=== PATIENT | male | born 1940 | race Caucasian/White ===

== ENCOUNTER 2019-08-17 22:06 | Inpatient (IN) | payer BC, MEDICARE ==
[2019-08-17] MEDS ORDERED: ASPIRIN 81 MG PO STA (23:06)
--- NOTE | 2019-08-17 23:21 | XR ---
EXAMINATION TYPE: XR chest 2V DATE OF EXAM: 08/17/2019 COMPARISON: NONE HISTORY: Chest pain TECHNIQUE: Frontal and lateral views of the chest are obtained. FINDINGS: There is no heart failure nor confluent pneumonic infiltrate. Costophrenic angles are nicholas r. There are sternal wires. Bony thorax is intact. IMPRESSION: No active cardiopulmonary disease. No change. Normal heart.
[2019-08-17 23:23] LABS: Anisocytosis Slight; Basophils # (A) 0.1 k/uL (0-0.2); Basophils % (A) 1 %; Eosinophils # (A) 0.3 k/uL (0-0.7); Eosinophils % (A) 4 %; HCT 28.4 % (39.0-53.0); HGB 8.8 gm/dL (13.0-17.5); Lymphocytes # (A) 1.6 k/uL (1.0-4.8); Lymphocytes % (A) 21 %; MCH 27.2 pg (25.0-35.0); MCHC 30.9 g/dL (31.0-37.0); Mean Platelet Volume 8.2; Monocytes # (A) 0.4 k/uL (0-1.0); Monocytes % (A) 5 %; Neutrophils # (A) 5.2 k/uL (1.3-7.7); Neutrophils % (A) 67 %; Platelet Count 212 k/uL (150-450); RBC 3.23 m/uL (4.30-5.90); RDW 16.2 % (11.5-15.5); WBC 7.8 k/uL (3.8-10.6)
[2019-08-17 23:31] LABS: Albumin 3.8 g/dL (3.5-5.0); Calcium 9.4 mg/dL (8.4-10.2); Magnesium 1.9 mg/dL (1.6-2.3); Potassium 5.1 mmol/L (3.5-5.1); Total Bilirubin 0.1 mg/dL (0.2-1.3); Total Protein 6.6 g/dL (6.3-8.2)
[2019-08-17 23:36] LABS: INR 0.9 (<1.2); Partial Thromboplastin Time 25.6 sec (22.0-30.0); Prothrombin Time 9.6 sec (9.0-12.0)
[2019-08-17 23:44] LABS: D-Dimer 0.8 mg/L FEU (<0.60)
--- NOTE | 2019-08-17 23:49 | ED ---
General Adult HPI - General Chief complaint: Chest Pain Stated complaint: Chest pain Time Seen by Provider: 08/17/19 22:24 Source: patient Mode of arrival: wheelchair Limitations: no limitations - History of Present Illness Initial comments: Dictation was produced using [employer] dictation software. please excuse any grammatical, word or spelling errors. Chief Complaint: 78-year-old male past medical history of asthma, coronary artery disease, status post CABG, diabetes, dyslipidemia and hypertension presents with chest pain. History of Present Illness: Patient is 78-year-old male he is has multiple comorbidities. He presents today with exertional chest pain. Patient is a history of CABG. This Was performed at outside facility. Patient lives in [place] however has a cottage in the area. Patient was having chest pain after moving groceries. Patient also has left knee pain. He states that pain is been ongoing however is worse the back of the knee. Patient states the pain was sharp without any radiation. Patient states that he does not have any pain at the moment. He did complain of some mild diaphoresis during this episode. No radiation of symptoms to the jaw or upper extremities. Patient does not feel short of breath at rest. The ROS documented in this emergency department record has been reviewed and confirmed by me. Those systems with pertinent positive or negative responses have been documented in the HPI. All other systems are other negative and/or noncontributory. PHYSICAL EXAM: General Impression: Alert and oriented x3, not in acute distress HEENT: Normocephalic atraumatic, extra-ocular movements intact, pupils equal and reactive to light bilaterally, mucous membranes moist. Cardiovascular: Heart regular rate and rhythm, S1&S2 audible, no murmurs, rubs or gallops Chest: Mild wheezing Abdomen: Bowel sounds present, abdomen soft, non-tender, non-distended, no organ omegaly Musculoskeletal: Pulses present and equal in all extremities, no peripheral edema Motor: no focal deficits noted Neurological: CN II-XII grossly intact, no focal motor or sensory deficits noted Skin: Intact with no visualized rashes Psych: Normal affect and mood ED course: 80-year-old male with multiple comorbidities presents with chest pain shortness of breath. As upon arrival shows heart rate of 103, respiratory signs within acceptable limits. Lipitor evaluation obtained showing hemoglobin of 8.8. This is slightly decreased compared to hemoglobin from October 2016. Patient also does have mild elevated RDW. He has no complaints of GI bleed or diarrhea. Patient's creatinine is elevated at 3.70. He has history of right nephrectomy due to kidney cancer. Glucose 352. D-dimer is elevated 0.8, troponin 0.018, prematurity peptide is 2000. Patient has acute kidney injury and would not tolerate contrast given that he has only one kidney. Patient started heparin VQ scan is ordered for evaluation of possible pulmonary embolus. Patient given fluids for concern of acute kidney injury. She is clinical presentation concerning for atypical chest pain with typical features, acute kidney injury with history of nephrectomy and possible pulmonary embolus given chest pain and shortness of breath. Patient be admitted to Dr. Sanchez's group. Patient ordered for intravenous fluids. EKG interpretation: Ventricular rate 78, normal sinus rhythm,. Interval 166, QS 98, QTC 424. No NV prolongation, no QTC prolongation, no ST or T-wave changes noted. There are some changes compared to EKG from July 2016, no findings to suggest ischemia or ST segment elevation MN. - Related Data Home Medications Medication Instructions Recorded Confirmed Amitriptyline HCl [Elavil] 20 mg PO DAILY 08/14/16 08/17/19 Aspirin EC [Ecotrin Low Dose] 81 mg PO DAILY 08/14/16 08/17/19 Atorvastatin [Lipitor] 40 mg PO HS 08/14/16 08/17/19 Calcitriol [Rocaltrol] 0.25 mcg PO DAILY 08/14/16 08/17/19 Calcium Carbonate [Calcium] 600 mg PO DAILY 08/14/16 08/17/19 Insulin Aspart [NovoLOG Flexpen] 6 units SQ -KT 08/14/16 08/17/19 Insulin Detemir [Levemir Flextouch] 40 units SQ HS 08/14/16 08/17/19 Magnesium Oxide [Mag-Ox] 500 mg PO DAILY 08/14/16 08/17/19 Omeprazole [PriLOSEC] 20 mg PO AC-BRKFST 08/14/16 08/17/19 Primidone [Mysoline] 50 mg PO QID 08/14/16 08/17/19 Albuterol Sulfate [Proair Hfa] 1 - 2 puff INHALATION RT-QID PRN 08/17/19 08/17/19 Biotin 5 mg PO DAILY 08/17/19 08/17/19 Clopidogrel [Plavix] 75 mg PO HS 08/17/19 08/17/19 Donepezil HCl [Aricept] 5 mg PO HS 08/17/19 08/17/19 Levothyroxine Sodium [Synthroid] 75 mcg PO DAILY 08/17/19 08/17/19 Wheat Dextrin [Benefiber] 1 packet PO DAILY 08/17/19 08/17/19 amLODIPine [Norvasc] 5 mg PO BID 08/17/19 08/17/19 sitaGLIPtin [Januvia] 100 mg PO DAILY 08/17/19 08/17/19 Allergies Allergy/AdvReac Type Severity Reaction Status Date / Time Penicillins Allergy Unknown Verified 08/17/19 23:06 Xavi Cheese AdvReac Nausea & Uncoded 08/17/19 23:06 Vomiting & Diarrhea Review of Systems ROS Statement: Those systems with pertinent positive or pertinent negative responses have been documented in the HPI. ROS Other: All systems not noted in ROS Statement are negative. Past Medical History Past Medical History: Asthma, Cancer, Diabetes Mellitus, Hyperlipidemia, Hypertension, Osteoarthritis (OA) History of Any Multi-Drug Resistant Organisms: None Reported Past Surgical History: Coronary Bypass/CABG, Heart Catheterization With Stent, Hernia Repair, Orthopedic Surgery Additional Past Surgical History / Comment(s): kidney removed from right side Past Psychological History: No Psychological Hx Reported Smoking Status: Former smoker Past Alcohol Use History: Occasional Past Drug Use History: None Reported General Exam Limitations: no limitations Course Vital Signs 08/17/19 08/17/19 22:15 23:54 Temperature 98.5 F Pulse Rate 103 H 71 Respiratory 18 18 Rate Blood Pressure 138/98 156/76 O2 Sat by Pulse 95 100 Oximetry Medical Decision Making - Lab Data Result diagrams: 08/17/19 23:10 08/17/19 23:10 Lab Results 08/17/19 08/17/19 08/17/19 Range/Units 23:10 23:10 23:10 WBC 7.8 (3.8-10.6) k/uL RBC 3.23 L (4.30-5.90) m/uL Hgb 8.8 L (13.0-17.5) gm/dL Hct 28.4 L (39.0-53.0) % MCV 88.0 (80.0-100.0) fL MCH 27.2 (25.0-35.0) pg MCHC 30.9 L (31.0-37.0) g/dL RDW 16.2 H (11.5-15.5) % Plt Count 212 (150-450) k/uL Neutrophils % 67 % Lymphocytes % 21 % Monocytes % 5 % Eosinophils % 4 % Basophils % 1 % Neutrophils # 5.2 (1.3-7.7) k/uL Lymphocytes # 1.6 (1.0-4.8) k/uL Monocytes # 0.4 (0-1.0) k/uL Eosinophils # 0.3 (0-0.7) k/uL Basophils # 0.1 (0-0.2) k/uL Anisocytosis Slight PT (9.0-12.0) sec INR (<1.2) APTT (22.0-30.0) sec D-Dimer (<0.60) mg/L FEU Sodium 140 (137-145) mmol/L Potassium 5.1 (3.5-5.1) mmol/L Chloride 104 (98-107) mmol/L Carbon Dioxide 27 (22-30) mmol/L Anion Gap 9 mmol/L BUN 54 H (9-20) mg/dL Creatinine 3.70 H (0.66-1.25) mg/dL Est GFR (CKD-EPI)AfAm 17 (>60 ml/min/1.73 sqM) Est GFR (CKD-EPI)NonAf 15 (>60 ml/min/1.73 sqM) Glucose 352 H (74-99) mg/dL Calcium 9.4 (8.4-10.2) mg/dL Magnesium 1.9 (1.6-2.3) mg/dL Total Bilirubin 0.1 L (0.2-1.3) mg/dL AST 19 (17-59) U/L ALT 18 L (21-72) U/L Alkaline Phosphatase 132 H (38-126) U/L Troponin I (0.000-0.034) ng/mL NT-Pro-B Natriuret Pep 2480 pg/mL Total Protein 6.6 (6.3-8.2) g/dL Albumin 3.8 (3.5-5.0) g/dL 09/19/19 09/19/19 Range/Units 23:10 23:10 WBC (3.8-10.6) k/uL RBC (4.30-5.90) m/uL Hgb (13.0-17.5) gm/dL Hct (39.0-53.0) % MCV (80.0-100.0) fL MCH (25.0-35.0) pg MCHC (31.0-37.0) g/dL RDW (11.5-15.5) % Plt Count (150-450) k/uL Neutrophils % % Lymphocytes % % Monocytes % % Eosinophils % % Basophils % % Neutrophils # (1.3-7.7) k/uL Lymphocytes # (1.0-4.8) k/uL Monocytes # (0-1.0) k/uL Eosinophils # (0-0.7) k/uL Basophils # (0-0.2) k/uL Anisocytosis PT 9.6 (9.0-12.0) sec INR 0.9 (<1.2) APTT 25.6 (22.0-30.0) sec D-Dimer 0.80 H (<0.60) mg/L FEU Sodium (137-145) mmol/L Potassium (3.5-5.1) mmol/L Chloride (98-107) mmol/L Carbon Dioxide (22-30) mmol/L Anion Gap mmol/L BUN (9-20) mg/dL Creatinine (0.66-1.25) mg/dL Est GFR (CKD-EPI)AfAm (>60 ml/min/1.73 sqM) Est GFR (CKD-EPI)NonAf (>60 ml/min/1.73 sqM) Glucose (74-99) mg/dL Calcium (8.4-10.2) mg/dL Magnesium (1.6-2.3) mg/dL Total Bilirubin (0.2-1.3) mg/dL AST (17-59) U/L ALT (21-72) U/L Alkaline Phosphatase (38-126) U/L Troponin I 0.018 (0.000-0.034) ng/mL NT-Pro-B Natriuret Pep pg/mL Total Protein (6.3-8.2) g/dL Albumin (3.5-5.0) g/dL Disposition Clinical Impression: DAMIR (acute kidney injury), Chest pain, Dyspnea Disposition: ADMITTED IP TO THIS HOSP Condition: Fair Referrals: None,Stated [Primary Care Provider] - 1-2 days Decision Time: 00:33
[2019-08-18] MEDS ORDERED: NITROGLYCERIN SL TABS 0.4 MG TAB SUBLINGUAL PRN (00:27)
[2019-08-18] MEDS ORDERED: HEPARIN SODIUM,PORCINE 10,000 UNIT/ML 1 ML VIAL IV ONE (00:29)
[2019-08-18] MEDS ORDERED: HEPARIN SODIUM,PORCINE 5,000 UNIT/ML 1 ML VIAL IV PRN (00:29)
[2019-08-18] MEDS ORDERED: SODIUM CHLORIDE 0.9% 1,000 ML IV STA ×2 (00:32)
[2019-08-18] MEDS: HEPARIN SOD,PORK IN 0.45% NACL 25,000 UNIT in 0.45% NACL 1 250ML.BAG IV SCH ×2 (00:48→16:39)
[2019-08-18 01:46] VITALS: BMI 29.7
[2019-08-18] MEDS: INSULIN DETEMIR (LEVEMIR) 100 UNIT/ML SYR SQ SCH ×2 (01:54→20:54)
[2019-08-18 06:03] LABS: Glucose,Whole Blood 168 mg/dL (75-99)
[2019-08-18] MEDS: LEVOTHYROXINE 75 MCG TAB PO SCH (06:56)
--- NOTE | 2019-08-18 09:20 | P.CRDCN ---
History of Present Illness Consult date: 08/18/19 Requesting physician: Lia Sanchez Consult reason: chest pain Chief complaint: Left knee pain, chest pain History of present illness: This is a 78-year-old gentleman with history of coronary artery disease and prior bypass surgery as well as subsequent stent placements, the exact details patient was unable to provide, his procedures were performed in [facility]. He also has a history of hypertension, diabetes, hyperlipidemia, hypothyroidism, history of kidney cancer for which the patient underwent a nephrectomy in the past, he also has history of subsequent to cancer, neither times to the patient re-require any chemotherapy. Patient follows with a office secretary in the [place] area, his associate biological sales is also in [facility]. Patient presents to the hospital with symptoms of left knee discomfort as well as chest pain. He states that he was walking in his house, that a sharp pain behind his knee, felt like his leg was going to give out on him, he threw himself down onto the couch and shortly thereafter developed midsternal chest pressure with associated shortness of breath. He states that the symptoms lasted a few minutes and dissipated. The symptoms did return again shortly thereafter and for this reason the patient came to the emergency room for further evaluation and treatment. His chest x-ray on presentation here did not reveal any active cardiopulmonary disease. Initial EKG showed a normal sinus rhythm with incomplete right bundle branch block pattern and nonspecific ST-T wave changes. Blood pressure this morning 172/73 with a heart rate in the 70s, 96% on room air. White blood cell count 7.8, hemoglobin 8.8, platelet count 212. D-dimer 0.80. Sodium 140, potassium 5.1, BUN 54, creatinine 3.7. Magnesium 1.9. ALT 18, alk phos 132, troponin 0.018, 0.047. BNP 2480. Patient said he did have one episode of chest discomfort this morning, at the time of my examination he is currently chest pain-free. He also stated that if he needs to have any procedures performed, that he prefers to have an [place] where his associate biological sales is. Past Medical History Past Medical History: Asthma, Coronary Artery Disease (CAD), Cancer, Diabetes Mellitus, GERD/Reflux, Hyperlipidemia, Hypertension, Osteoarthritis (OA), Renal Disease, Thyroid Disorder Additional Past Medical History / Comment(s): kidney cancer (right Nephrectomy) History of Any Multi-Drug Resistant Organisms: None Reported Past Surgical History: Coronary Bypass/CABG, Heart Catheterization With Stent, Hernia Repair, Orthopedic Surgery Additional Past Surgical History / Comment(s): kidney removed from right side Past Anesthesia/Blood Transfusion Reactions: No Reported Reaction Date of Last Stent Placement:: 2011 Past Psychological History: No Psychological Hx Reported Smoking Status: Former smoker Past Alcohol Use History: Occasional Past Drug Use History: None Reported - Past Family History Father Family Medical History: Unable to Obtain Mother Family Medical History: Asthma Medications and Allergies Home Medications Medication Instructions Recorded Confirmed Type Amitriptyline HCl [Elavil] 20 mg PO DAILY 08/14/16 08/17/19 History Aspirin EC [Ecotrin Low Dose] 81 mg PO DAILY 08/14/16 08/17/19 History Atorvastatin [Lipitor] 40 mg PO 08/14/16 08/17/19 History Calcitriol [Rocaltrol] 0.25 mcg PO DAILY 08/14/16 08/17/19 History Calcium Carbonate [Calcium] 600 mg PO DAILY 08/14/16 08/17/19 History Insulin Aspart [NovoLOG Flexpen] 6 units SQ -[facility] 08/14/16 08/17/19 History Insulin Detemir [Levemir Flextouch] 40 units SQ 08/14/16 08/17/19 History Magnesium Oxide [Mag-Ox] 500 mg PO DAILY 08/14/16 08/17/19 History Omeprazole [PriLOSEC] 20 mg PO -KFST 08/14/16 08/17/19 History Primidone [Mysoline] 50 mg PO QID 08/14/16 08/17/19 History Albuterol Sulfate [Proair Hfa] 1 - 2 puff INHALATION RT-QID PRN 08/17/19 08/17/19 History Biotin 5 mg PO DAILY 08/17/19 08/17/19 History Clopidogrel [Plavix] 75 mg PO HS 08/17/19 08/17/19 History Donepezil HCl [Aricept] 5 mg PO HS 08/17/19 08/17/19 History Levothyroxine Sodium [Synthroid] 75 mcg PO DAILY 08/17/19 08/17/19 History Wheat Dextrin [Benefiber] 1 packet PO DAILY 08/17/19 08/17/19 History amLODIPine [Norvasc] 5 mg PO BID 08/17/19 08/17/19 History sitaGLIPtin [Januvia] 100 mg PO DAILY 08/17/19 08/17/19 History Allergies Allergy/AdvReac Type Severity Reaction Status Date / Time Penicillins Allergy Unknown Verified 08/17/19 23:06 Xavi Cheese AdvReac Nausea & Uncoded 08/17/19 23:06 Vomiting & Diarrhea Physical Exam Vitals: Vital Signs Temp Pulse Pulse Resp BP BP Pulse Ox 08/18/19 07:56 97.5 F L 71 16 172/73 96 08/18/19 04:00 97.8 F 68 16 146/70 100 08/18/19 01:19 97.7 F 08/18/19 00:54 97.8 F 69 77 16 167/89 164/75 100 08/17/19 23:54 71 18 156/76 100 08/17/19 22:15 98.5 F 103 H 18 138/98 95 Intake and Output 08/17/19 08/18/19 08/18/19 22:59 06:59 14:59 Intake Total 450 Balance 450 Intake: IV 450 Sodium Chloride 0.9% 1, 450 000 ml @ 75 mls/hr IV . [id number] STA Rx#:[id number] Other: Voiding Method Urinal Weight 94.801 kg 99.3 kg PHYSICAL EXAMINATION: GENERAL: 78-year-old gentleman in no acute distress at the time of my examination HEENT: Head is atraumatic, normocephalic. Pupils equal, round. Sclera anicteric. Conjunctiva are clear. Mucous membranes of the mouth are moist. Neck is supple. There is no elevated jugular venous pressure. No carotid b ruit is heard. HEART EXAMINATION: Heart S1-S2 systolic ejection murmur heard in the aortic area CHEST EXAMINATION: Lungs are clear with mild diminished air entry to the bases bilaterally. Positive chest wall left chest area below the left. ABDOMEN: Soft, nontender. Bowel sounds are heard. No organomegaly noted. EXTREMITIES: 2+ peripheral pulses with no evidence of peripheral edema and no ca lf tenderness noted. Patient does have discomfort at his left knee area. NEUROLOGIC patient is awake, alert and oriented 3 . . Results 08/17/19 23:10 08/17/19 23:10 Cardiac Enzymes 08/17/19 08/17/19 08/18/19 Range/Units 23:10 23:10 05:24 AST 19 (17-59) U/L Troponin I 0.018 0.047 H* (0.000-0.034) ng/mL Coagulation 08/17/19 Range/Units 23:10 PT 9.6 (9.0-12.0) sec APTT 25.6 (22.0-30.0) sec CBC 08/17/19 Range/Units 23:10 WBC 7.8 (3.8-10.6) k/uL RBC 3.23 L (4.30-5.90) m/uL Hgb 8.8 L (13.0-17.5) gm/dL Hct 28.4 L (39.0-53.0) % Plt Count 212 (150-450) k/uL Comprehensive Metabolic Panel 08/17/19 Range/Units 23:10 Sodium 140 (137-145) mmol/L Potassium 5.1 (3.5-5.1) mmol/L Chloride 104 (98-107) mmol/L Carbon Dioxide 27 (22-30) mmol/L BUN 54 H (9-20) mg/dL Creatinine 3.70 H (0.66-1.25) mg/dL Glucose 352 H (74-99) mg/dL Calcium 9.4 (8.4-10.2) mg/dL AST 19 (17-59) U/L ALT 18 L (21-72) U/L Alkaline Phosphatase 132 H (38-126) U/L Total Protein 6.6 (6.3-8.2) g/dL Albumin 3.8 (3.5-5.0) g/dL Current Medications Generic Name Dose Route Start Last Admin Trade Name Freq PRN Reason Stop Dose Admin Aspirin 325 mg 08/19/19 09:00 Aspirin PO DAILY [facility] Atorvastatin Calcium 40 mg 08/18/19 21:00 Lipitor PO HS [facility] Clopidogrel Bisulfate 75 mg 08/18/19 21:00 Plavix PO HS [facility] Heparin Sodium (Porcine) 0 unit 08/18/19 00:29 Heparin IV PER PROTOCOL PRN Low PTT Protocol Heparin Sodium/Sodium Chloride 250 mls @ 17.064 mls/hr 08/18/19 00:30 08/18/19 00:48 25,000 unit/ Sodium Chloride IV 18 units/kg/hr .[id number] [facility] 17.064 mls/hr Administration Protocol 18 UNITS/KG/HR Sodium Chloride 1,000 mls @ 75 mls/hr 08/18/19 00:32 08/18/19 00:46 Saline 0.9% IV 08/18/19 13:51 75 mls/hr .[id number] [facility] Administration Insulin Aspart 6 unit 08/18/19 07:30 Novolog SQ AC-BRKFST [facility] Insulin Detemir 40 unit 08/18/19 00:45 08/18/19 01:54 Levemir SQ 40 unit HS [facility] Administration Levothyroxine Sodium 75 mcg 08/18/19 06:30 08/18/19 06:56 Synthroid PO 75 mcg DAILY@0630 [facility] Administration Linagliptin 5 mg 08/18/19 09:00 Tradjenta PO DAILY [facility] Magnesium Oxide 400 mg 08/18/19 09:00 Mag-Ox PO DAILY [facility] Nitroglycerin 0.4 mg 08/18/19 00:27 Nitrostat SUBLINGUAL Q5M PRN Chest Pain Intake and Output 08/17/19 08/18/19 08/18/19 22:59 06:59 14:59 Intake Total 450 Balance 450 Intake: IV 450 Sodium Chloride 0.9% 1, 450 000 ml @ 75 mls/hr IV . [id number] [facility] Rx#:[id number] Other: Voiding Method Urinal Weight 94.801 kg 99.3 kg 08/17/19 23:10 08/17/19 23:10 EKG Interpretations (text) Initial EKG shows a normal sinus rhythm with ST-T wave changes noted in the anterior leads as well as lateral leads. Subsequent EKG performed this morning shows normal sinus rhythm with anterior lateral ST-T wave changes Assessment and Plan Plan: Assessment and plan #1 chest pressure with associated shortness of breath, suggestive of possible acute coronary syndrome. EKG shows a normal sinus rhythm with anterior lateral ST-T wave changes. Troponin 0.018, 0.047. #2 known history of coronary artery disease with prior bypass surgery and stent placement #3 hypertension #4 diabetes #5 hyperlipidemia #6 history of kidney cancer with prior right nephrectomy. Patient has chronic kidney disease we did get some information from the patient's office secretary, labs that were performed in June showed a BUN of 48 and a creatinine of 3.5. Hemoglobin 10.5. #7 anemia #8 abnormal d-dimer, lung perfusion scan has been ordered and is yet pending. #9 systolic murmur suggestive of possible severe aortic stenosis Plan We are awaiting records from the patient's associate biological sales. We will obtain a third troponin, obtain an echocardiogram with Doppler study. Decrease aspirin 81 mg daily, continue Lipitor, Plavix, IV heparin, Synthroid, we will start the patient on a low-dose of beta husam, he is not currently on an YANETH inhibitor because of his renal function. Further recommendations to follow. DNP note has been reviewed, I agree with a documented findings and plan of care. Patient was seen and examined.
--- NOTE | 2019-08-18 09:24 | NM ---
EXAMINATION TYPE: NM pul vent and perfuse DATE OF EXAM: 08/18/2019 COMPARISON: Chest x-ray 08/17/2019 HISTORY: Elevated d-dimer TECHNIQUE: Utilizing inhalation of 42 mCi Tc 99m DTPA aerosol and intravenous injection of 5.2 mCi o f Tc 99m MAA, ventilation and perfusion images are acquired post injection in multiple projections. FINDINGS: No suspicious moderate or large perfusion defects are evident. Mismatched defects are not evident. Th ere is some patchy peripheral ventilation which is greater than seen on the perfusion imaging. IMPRESSION: Low probability for pulmonary embolism.
[2019-08-18] MEDS: LINAGLIPTIN 5 MG TABLET PO SCH (09:28)
[2019-08-18] MEDS: MAGNESIUM OXIDE 400 MG TAB PO SCH (09:28)
[2019-08-18 10:24] LABS: Glucose,Whole Blood 142 mg/dL (75-99)
[2019-08-18] MEDS ORDERED: FUROSEMIDE 10 MG/ML 4 ML VIAL IV STA (10:42)
[2019-08-18] MEDS ORDERED: hydrALAZINE HCL 20 MG/ML 1 ML VIAL IVP STA (11:01)
[2019-08-18] MEDS ORDERED: FUROSEMIDE 10 MG/ML 2 ML VIAL IV STA ×2 (11:16)
--- NOTE | 2019-08-18 11:30 | ECHOF ---
Referral Reason:chest pain MEASUREMENTS -------- HEIGHT: 182.9 cm WEIGHT: 98.9 kg BP: 130/60 RVIDd: 4.3 cm (< 3.3) IVSd: 1.7 cm (0.6 - 1.1) LVIDd: 4.4 cm (3.9 - 5.3) LVPWd: 1.9 cm (0.6 - 1.1) IVSs: 2.0 cm LVIDs: 3.3 cm LVPWs: 2.0 cm LA Diam: 4.7 cm (2.7 - 3.8) LAESV Index (A-L): 55.72 ml/m Ao Diam: 3.1 cm (2.0 - 3.7) AV Cusp: 0.7 cm (1.5 - 2.6) LA Diam: 4.2 cm (2.7 - 3.8) MV EXCURSION: 14.382 mm (> 18.000) MV EF SLOPE: 60 mm/s (70 - 150) EPSS: 0.4 cm MV E Ben: 0.90 m/s MV DecT: 108 ms MV A Ben: 0.82 m/s MV E/A Ratio: 1.09 AV maxP.36 mmHg AV maxP.36 mmHg AV meanP.39 mmHg RAP: 5.00 mmHg RVSP: 63.57 mmHg TAPSE: 1.86 cm FINDINGS -------- Sinus rhythm. This was a technically good study. The left ventricular size is normal. There is severe concentric left ventricular hypertrophy. Ove rall left ventricular systolic function is low-normal with, an EF between 50 - 55 %. The right ventricle is normal in size. LA is severely dilated >40 ml/m2 The right atrial size is normal. There is moderate aortic valve sclerosis. There is mild aortic regurgitation. There is severe aor tic stenosis present. Peak/mean gradient across the Aortic Valve is 66.36mmHg / 41.39mmHg. Mild mitral annular calcification present. Severe mitral regurgitation is present. Mild tricuspid regurgitation present. There is moderate pulmonary hypertension. The right ventric ular systolic pressure, as measured by Doppler, is 63.57mmHg. There is no pulmonic regurgitation present. The aortic root size is normal. There is no pericardial effusion. Increased Lap Grade II Diastolic Dysfunction. CONCLUSIONS -------- 1. Sinus rhythm. 2. This was a technically good study. 3. The left ventricular size is normal. 4. There is severe concentric left ventricular hypertrophy. 5. Overall left ventricular systolic function is low-normal with, an EF between 50 - 55 %. 6. LA is severely dilated >40 ml/m2 7. There is moderate aortic valve sclerosis. 8. There is mild aortic regurgitation. 9. There is severe aortic stenosis present. 10. Peak/mean gradient across the Aortic Valve is 66.36mmHg / 41.39mmHg. 11. Mild mitral annular calcification present. 12. Severe mitral regurgitation is present. 13. Mild tricuspid regurgitation present. 14. There is moderate pulmonary hypertension. 15. There is no pulmonic regurgitation present. 16. The aortic root size is normal. 17. There is no pericardial effusion. 18. Increased Lap Grade II Diastolic Dysfunction. OPERATIONS LEADER: Samira Ibarra RDCS
--- NOTE | 2019-08-18 11:31 | XR ---
EXAMINATION TYPE: XR chest 1V DATE OF EXAM: 08/18/2019 HISTORY: Shortness of breath. COMPARISON: 08/17/2019 TECHNIQUE: Single view of the chest is submitted. FINDINGS: Demonstrated are scattered senescent parenchymal change. Pulmonary venous congestion with interstitial edema and mild cardiomegaly. Hilar and mediastinal structures are within normal limits. Degenerative changes are seen of the dorsal spine. IMPRESSION: 1. Mild features of congestive failure.
[2019-08-18] MEDS ORDERED: IPRATROPIUM-ALBUTEROL 3 ML NEB INHALATION PRN (11:36)
[2019-08-18] MEDS: INSULIN ASPART (NovoLOG) 100 UNIT/ML VIAL SQ SCH (11:37)
[2019-08-18] MEDS ORDERED: amLODIPine 5 MG TAB PO STA (11:37)
[2019-08-18] MEDS: IPRATROPIUM-ALBUTEROL 3 ML NEB INHALATION SCH ×2 (11:40→19:58)
[2019-08-18] MEDS: NITROGLYCERIN OINT 1 INCH/GM PACKET TOPICAL SCH ×2 (11:48→18:15)
[2019-08-18 11:50] LABS: Glucose,Whole Blood 152 mg/dL (75-99)
[2019-08-18 12:43] LABS: Calcium 9.3 mg/dL (8.4-10.2); Potassium 5.3 mmol/L (3.5-5.1)
--- NOTE | 2019-08-18 15:09 | CONS ---
CONSULTATION PULMONARY/CRITICAL CARE CONSULTATION: DATE OF SERVICE: 08/18/2019 REASON FOR CONSULTATION: Shortness of breath. This is a 78-year-old male who apparently presented to the emergency room on August 176 hours complaining of chest pain. The patient apparently developed chest pain the day of admission. The patient noted the pain when he was moving some groceries. In addition, he complained of left knee pain. He also had some mild shortness of breath. The pain was described as being sharp without any radiation. He was admitted to the hospital to be evaluated. This morning he developed acute shortness of breath. Chest x-ray in my opinion shows heart failure. His troponins were mildly elevated. Cardiology has yet to see the patient. He does have a previous history of CAD with previous bypass grafting. The patient had a repeat chest x-ray and a ventilation- perfusion lung scan. The lung scan was low probability for PE. He was started on IV heparin anyway. Currently the patient is going to have his IV turned on just to KVO. He got Lasix 40 mg IV push. We are going to give him another 20 mg IV push. We will give him an inch of nitroglycerin paste. Finally, we are going to place him on BiPAP at 10 and 5 and 50%. Cardiology will see the patient sometime this morning, I am sure. This is likely more cardiac in nature than anything else. HOME MEDICATIONS: His home medications are numerous and include: 1. Elavil. 2. Low-dose aspirin. 3. Lipitor. 4. Calcitriol. 5. Calcium. 6. Insulin. 7. Magnesium. 8. Omeprazole. 9. Mysoline. 10.Albuterol inhaler. 11.Biotin. 12.Plavix. 13.Aricept. 14.Synthroid. 15.Benefiber. 16.Norvasc. 17.Januvia. ALLERGIES: PENICILLIN AND BLUE CHEESE PAST MEDICAL HISTORY: Past medical history includes: 1. Mild chronic bronchial asthma, for which he uses a rescue inhaler p.r.n. 2. Kidney cancer/hypernephroma, status post right nephrectomy many years back. 3. Diabetes mellitus. 4. Hyperlipidemia. 5. Hypertension. 6. Osteoarthritis. 7. Coronary artery disease. SURGICAL HISTORY: Surgical history includes: 1. Bypass grafting. 2. Heart catheterization with stent. 3. Hernia repair. 4. Orthopedic procedures. 5. Right nephrectomy. SOCIAL HISTORY: Positive for previous tobacco use. Drinks occasionally. No illicit drug use. FAMILY HISTORY: Noncontributory. Both mother and father were relatively healthy. REVIEW OF SYSTEMS: CONSTITUTIONAL: Negative. NEUROLOGIC: Negative. HEENT: Negative. CARDIOVASCULAR: Currently no chest pain. PULMONARY: Shortness of breath. GI: Negative. : Negative. RHEUMATOLOGIC: Negative. IMMUNOLOGIC: Negative. ENDOCRINOLOGIC: Negative. DERMATOLOGIC: Negative. PHYSICAL EXAMINATION: VITAL SIGNS: Current vital signs include temperature 97.5, heart rate 71, respiratory rate 16 to 20 breaths per minute, blood pressure 172/73, mean 106, room-air saturation 96%. He is that and more on oxygen at 6 L. He is going to be placed on BiPAP at 10, 5 and 50%. GENERAL APPEARANCE: He appears mildly short of breath. Mild conversational dyspnea. No audible wheezing. No use of accessory muscles. HEENT: HEENT examination is grossly unremarkable. NECK: Supple. Full range of motion. No adenopathy. Neck veins are not distended. CARDIOVASCULAR: Cardiovascular examination reveals regular rhythm and rate. Heart rate about 80 beats per minute. S1, S2 normal. No S3, S4 or murmur. LUNGS: Lungs reveal bibasilar crackles. Breath sounds are diminished. There were no wheezes or rhonchi. ABDOMEN: Soft. Bowel sounds are heard. EXTREMITIES: Intact. No significant edema. SKIN: Without rash. NEUROLOGIC: Neurologic examination is brief but nonfocal. LABS: Labs are reviewed. White count 7.8, hemoglobin 8.8, hematocrit 28.4, platelet count 212,000. His PT, INR, PTT all normal. D-dimer was elevated at 0.8. Sodium 140, potassium 5.1, chloride 104, CO2 27. Anion gap is 9. BUN and creatinine were 54 and 3.70. Glucose 352. Troponin 0.018 and 0.047. N-terminal proBNP 2480. The rest of the labs are reviewed and appear relatively normal. IMAGING: The initial chest x-ray in my opinion was relatively stable. There probably are small effusions. No neo failure. Ventilation-perfusion lung scan showed it to be low probability. Repeat chest x-ray in my opinion shows worsening fluid overload. There is fluid in the minor fissure. Costophrenic angles are not sharp. There is some cephalization. Medications are reviewed. ASSESSMENT: 1. Shortness of breath, likely related to underlying acute congestive heart failure. 2. Doubt pulmonary embolism. 3. Asthma, inactive. 4. Rule out myocardial ischemia. 5. History of coronary artery disease with previous bypass grafting. 6. Status post right nephrectomy for hypernephroma. 7. Chest pain on admission. 8. Diabetes mellitus. 9. Hyperlipidemia. 10.History of hypertension. 11.Degenerative joint disease. PLAN: One inch of nitroglycerin paste was added q.6. Will put him on BiPAP at 10 and 5 and 50%. This will decrease preload. I am having the nurse turn down the IV to KVO. Will give him an additional 20 mg of Lasix IV push. He got 40 mg at 1040 hours. The patient will be reassessed over the next hour. Should he not improve, we may consider moving him to the intensive care unit. KATE / KIERSTEN: [id number] /
--- NOTE | 2019-08-18 17:00 | P.HPIM ---
History of Present Illness H&P Date: 08/18/19 Chief Complaint: Chest pain 78-year-old gentleman with history of coronary artery disease and prior bypass surgery as well as subsequent stent placements, the exact details patient was unable to provide, his procedures were performed in [facility]. He also has a history of hypertension, diabetes, hyperlipidemia, hypothyroidism, history of kidney cancer for which the patient underwent a nephrectomy in the past, he also has history of subsequent to cancer, neither times to the patient re-require any chemotherapy. Patient follows with a supervisor car and yard in the [place] area, his general inspector is also in [facility]. Patient presents to the hospital with symptoms of left knee discomfort as well as chest pain. He states that he was walking in his house, that a sharp pain behind his knee, felt like his leg was going to give out on him, he threw himself down onto the couch and shortly thereafter developed midsternal chest pressure with associated shortness of breath. He states that the symptoms lasted a few minutes and dissipated. The symptoms did return again shortly thereafter and for this reason the patient came to the emergency room for further evaluation and treatment. His chest x-ray on presentation here did not reveal any active cardiopulmonary disease. Initial EKG showed a normal sinus rhythm with incomplete right bundle branch block pattern and nonspecific ST-T wave changes. Blood pressure this morning 172/73 with a heart rate in the 70s, 96% on room air. White blood cell count 7.8, hemoglobin 8.8, platelet count 212. D-dimer 0.80. Sodium 140, potassium 5.1, BUN 54, creatinine 3.7. Magnesium 1.9. ALT 18, alk phos 132, troponin 0.018, 0.047. BNP 2480. Review of Systems Constitutional: Denies chills, Denies fever Eyes: denies blurred vision, denies loss of vision Ears, nose, mouth and throat: Denies epistaxis Cardiovascular: Reports chest pain Respiratory: Reports dyspnea, Denies cough with sputum Gastrointestinal: Denies abdominal pain, Denies nausea, Denies vomiting Genitourinary: Denies dysuria, Denies hematuria Musculoskeletal: Denies frequent falls Integumentary: Denies darkening of skin Neurological: Denies headaches Endocrine: Denies cold intolerance, Denies heat intolerance Past Medical History Past Medical History: Asthma, Coronary Artery Disease (CAD), Cancer, Diabetes Mellitus, GERD/Reflux, Hyperlipidemia, Hypertension, Osteoarthritis (OA), Renal Disease, Thyroid Disorder Additional Past Medical History / Comment(s): kidney cancer (right Nephrectomy) History of Any Multi-Drug Resistant Organisms: None Reported Past Surgical History: Coronary Bypass/CABG, Heart Catheterization With Stent, Hernia Repair, Orthopedic Surgery Additional Past Surgical History / Comment(s): kidney removed from right side Past Anesthesia/Blood Transfusion Reactions: No Reported Reaction Date of Last Stent Placement:: 2011 Past Psychological History: No Psychological Hx Reported Smoking Status: Former smoker Past Alcohol Use History: Occasional Past Drug Use History: None Reported - Past Family History Father Family Medical History: Unable to Obtain Mother Family Medical History: Asthma Medications and Allergies Home Medications Medication Instructions Recorded Confirmed Type Amitriptyline HCl [Elavil] 20 mg PO DAILY 08/14/16 08/17/19 History Aspirin EC [Ecotrin Low Dose] 81 mg PO DAILY 08/14/16 08/17/19 History Atorvastatin [Lipitor] 40 mg PO 08/14/16 08/17/19 History Calcitriol [Rocaltrol] 0.25 mcg PO DAILY 08/14/16 08/17/19 History Calcium Carbonate [Calcium] 600 mg PO DAILY 08/14/16 08/17/19 History Insulin Aspart [NovoLOG Flexpen] 6 units SQ -[facility] 08/14/16 08/17/19 History Insulin Detemir [Levemir Flextouch] 40 units SQ 08/14/16 08/17/19 History Magnesium Oxide [Mag-Ox] 500 mg PO DAILY 08/14/16 08/17/19 History Omeprazole [PriLOSEC] 20 mg PO AC-BRKFST 08/14/16 08/17/19 History Primidone [Mysoline] 50 mg PO QID 08/14/16 08/17/19 History Albuterol Sulfate [Proair Hfa] 1 - 2 puff INHALATION RT-QID PRN 08/17/19 08/17/19 History Biotin 5 mg PO DAILY 08/17/19 08/17/19 History Clopidogrel [Plavix] 75 mg PO HS 08/17/19 08/17/19 History Donepezil HCl [Aricept] 5 mg PO 08/17/19 08/17/19 History Levothyroxine Sodium [Synthroid] 75 mcg PO DAILY 08/17/19 08/17/19 History Wheat Dextrin [Benefiber] 1 packet PO DAILY 08/17/19 08/17/19 History amLODIPine [Norvasc] 5 mg PO BID 08/17/19 08/17/19 History sitaGLIPtin [Januvia] 100 mg PO DAILY 08/17/19 08/17/19 History Allergies Allergy/AdvReac Type Severity Reaction Status Date / Time Penicillins Allergy Unknown Verified 08/17/19 23:06 Xavi Cheese AdvReac Nausea & Uncoded 08/17/19 23:06 Vomiting & Diarrhea Physical Exam Vitals: Vital Signs Temp Pulse Pulse Resp BP BP Pulse Ox 08/18/19 08:00 71 16 08/18/19 07:56 97.5 F L 71 16 172/73 96 08/18/19 04:00 97.8 F 68 16 146/70 100 08/18/19 01:19 97.7 F 08/18/19 00:54 97.8 F 69 77 16 167/89 164/75 100 08/17/19 23:54 71 18 156/76 100 08/17/19 22:15 98.5 F 103 H 18 138/98 95 Intake and Output 08/17/19 08/18/19 08/18/19 22:59 06:59 14:59 Intake Total 450 Balance 450 Intake: IV 450 Sodium Chloride 0.9% 1, 450 000 ml @ 75 mls/hr IV . [id number] STA Rx#:[id number] Other: Voiding Method Urinal Urinal Weight 94.801 kg 99.3 kg PHYSICAL EXAMINATION: GENERAL: The patient is alert and oriented x3, not in any acute distress. Well developed, well nourished. HEENT: Pupils are round and equally reacting to light. EOMI. No scleral icterus. No conjunctival pallor. Normocephalic, atraumatic. No pharyngeal erythema. No thyromegaly. CARDIOVASCULAR: S1 and S2 present. No murmurs, rubs, or gallops. PULMONARY: Chest is clear to auscultation, no wheezing or crackles. ABDOMEN: Soft, nontender, nondistended, normoactive bowel sounds. No palpable organomegaly. MUSCULOSKELETAL: No joint swelling or deformity. EXTREMITIES: No cyanosis, clubbing, or pedal edema. NEUROLOGICAL: Gross neurological examination did not reveal any focal deficits. SKIN: No rashes. Results CBC & Chem 7: 08/17/19 23:10 08/18/19 11:44 Labs: Abnormal Lab Results - Last 24 Hours (Table) 08/17/19 08/17/19 08/17/19 Range/Units 23:10 23:10 23:10 RBC 3.23 L (4.30-5.90) m/uL Hgb 8.8 L (13.0-17.5) gm/dL Hct 28.4 L (39.0-53.0) % MCHC 30.9 L (31.0-37.0) g/dL RDW 16.2 H (11.5-15.5) % APTT (22.0-30.0) sec D-Dimer 0.80 H (<0.60) mg/L FEU BUN 54 H (9-20) mg/dL Creatinine 3.70 H (0.66-1.25) mg/dL Glucose 352 H (74-99) mg/dL POC Glucose (mg/dL) (75-99) mg/dL Total Bilirubin 0.1 L (0.2-1.3) mg/dL ALT 18 L (21-72) U/L Alkaline Phosphatase 132 H (38-126) U/L Troponin I (0.000-0.034) ng/mL 08/18/19 08/18/19 08/18/19 Range/Units 05:24 06:01 08:50 RBC (4.30-5.90) m/uL Hgb (13.0-17.5) gm/dL Hct (39.0-53.0) % MCHC (31.0-37.0) g/dL RDW (11.5-15.5) % APTT 174.5 H* (22.0-30.0) sec D-Dimer (<0.60) mg/L FEU BUN (9-20) mg/dL Creatinine (0.66-1.25) mg/dL Glucose (74-99) mg/dL POC Glucose (mg/dL) 168 H (75-99) mg/dL Total Bilirubin (0.2-1.3) mg/dL ALT (21-72) U/L Alkaline Phosphatase (38-126) U/L Troponin I 0.047 H* (0.000-0.034) ng/mL Thrombosis Risk Factor Assmnt - Choose All That Apply Any of the Below Risk Factors Present?: Yes Each Factor Represents 1 point: Obesity (BMI >25) Each Risk Factor Represents 3 Points: Age 75 years or older Thrombosis Risk Factor Assessment Total Risk Factor Score: 4 Thrombosis Risk Factor Assessment Level: Moderate Risk Assessment and Plan Assessment: 1. Acute hypoxic respiratory failure; possibly secondary to CHF -Patient currently remains on BiPAP; pulmonary is on board await further recommendations 2. Acute exacerbation CHF - Trend troponin every 43; monitor EKG; cardiac was ordered and pending - Continue with Lasix 20 mg IV every 12 hours; monitor strict ALEXEI's and daily weights; continue with low-salt and fluid restricted diet 3. Chest pain associated with shortness of breath; possible ACS - Troponin came back elevated and trending up from 0.0.8 to 0.047 - Cardiology is following and recommending to continue with aspirin 81 g daily, Lipitor, Plavix and IV heparin - Patient is started on low-dose beta blockers per cardiology recommendations - Plan to hold off on YANETH inhibitor therapy because of renal function 4. Acute on chronic kidney disease; patient has history of renal carcinoma with history of right nephrectomy; BUN/creatinine of 48/3.5; we will monitor strict ALEXEI's, daily weights, renal function and electrolytes; avoid nephrotoxins and hypotension; consult nephrology for further recommendations 5. Elevated d-dimer; pulmonary is following; VQ scan is ordered and pending 6. CAD/prior bypass surgery and stent placement 7. Diabetes mellitus; Levemir 40 mg subcu daily at bedtime; monitor Accu-Cheks every before meals and at bedtime with insulin sliding scale; continue with Tradjenta mg daily 8. Hypertension; amlodipine 5 mg by mouth twice a day 9. Hyperlipidemia; continue with home dose of Lipitor at 40 mg by mouth daily at bedtime 10. Hypothyroidism; clinically euthyroid on home dose of Synthroid 11. DVT prophylaxis; systemic anticoagulation with heparin CODE STATUS; full code Time with Patient: Greater than 30
[2019-08-18 17:31] LABS: Glucose,Whole Blood 112 mg/dL (75-99)
--- NOTE | 2019-08-18 18:24 | US ---
EXAMINATION TYPE: US kidneys/renal and bladder DATE OF EXAM: 08/18/2019 COMPARISON: NONE CLINICAL HISTORY: rf. right nephrectomy, renal failure EXAM MEASUREMENTS: Right Kidney: Surgically absent Left Kidney: 10.2 x 5.4 x 3.8 cm Right Kidney: surgically absent Left Kidney: cystic area lower pole = 3.0 x 3.3 x 3.2cm Bladder: appears wnl Bilateral Jets seen: left was seen There is no evidence for hydronephrosis at this point in time. No nephrolithiasis is seen. No lulu s are identified. The urinary bladder is anechoic. Bilateral ureteral jets are seen. IMPRESSION: No renal obstruction. Right nephrectomy noted. Simple cyst lower pole left kidney.No bethany al atrophy.
[2019-08-18] MEDS: CLOPIDOGREL 75 MG TAB PO SCH (20:54)
[2019-08-18] MEDS: amLODIPine 5 MG TAB PO SCH (20:54)
[2019-08-18] MEDS: ATORVASTATIN 40 MG TAB PO SCH (20:54)
[2019-08-18 20:55] LABS: Glucose,Whole Blood 93 mg/dL (75-99)
[2019-08-18 21:18] LABS: Glucose,Whole Blood 101 mg/dL (75-99)
--- NOTE | 2019-08-18 22:42 | CONS ---
CONSULTATION REASON FOR CONSULT: Renal failure. HISTORY OF PRESENT ILLNESS: Patient is a 78-year-old male who was admitted to the hospital with complaints of chest pains and shortness of breath. His chest x-ray showed no significant pulmonary disease. Patient was noted to have a creatinine of 3.7 mg/dL yesterday. It is down to 3.26 today. Review of previous labs shows a creatinine of 2.89 in October of 2016. Patient has a history of right nephrectomy. He has CKD, stage IV, with previous creatinine, as mentioned, about 2.8 in 2016. Patient received IV fluids initially. He has received a few doses of Lasix as well. This morning patient states he is quite short of breath and could not sleep last night. He is voiding on his own. Review of vital signs shows blood pressure has been slightly on the higher side. No episodes of hypotension noted. PAST MEDICAL HISTORY: 1. CKD. Patient follows with a pain management nurse out of the area, as he lives in the [place] area. I do not have his baseline creatinine. 2. History of asthma. 3. Coronary artery disease. 4. Type 2 diabetes. 5. Gastroesophageal reflux disease. 6. Hyperlipidemia. 7. Hypertension. 8. Osteoarthritis. 9. Hypothyroidism. 10.Kidney cancer, status post right nephrectomy. PAST SURGICAL HISTORY: 1. Coronary artery bypass surgery. 2. Coronary stent placement. 3. Hernia repair. 4. Right nephrectomy. SOCIAL HISTORY: Patient is a former smoker. No history of drug abuse or alcohol abuse. MEDICATIONS: Medications include: 1. Elavil. 2. Aspirin. 3. Lipitor. 4. Rocaltrol. 5. Calcium carbonate. 6. Mag oxide. 7. Prilosec. 8. Plavix. 9. Biotene. 10.Aricept. 11.Synthroid. 12.Benefiber. 13.Januvia. 14.Norvasc. ALLERGIES: INCLUDE PENICILLIN and BLUE CHEESE, which cause nausea, vomiting and diarrhea. PHYSICAL EXAMINATION: Patient is comfortable. He is mildly short of breath, not in any acute distress this morning. Blood pressure was 164/75, heart rate 77 per minute. He is afebrile. EXAMINATION OF THE HEART: S1 and S2. EXAMINATION OF LUNGS: Bilateral breath sounds are heard. Decreased breath sounds at bases. Basal crackles are heard. ABDOMEN: Soft, non-tender. Examination of lower extremities shows trace edema bilaterally. FAMILY SERVICE COUNSELOR exam is grossly intact. LABS: Sodium 143, potassium 5.3, chloride 109. CO2 is 20, BUN 51, serum creatinine 3.26. ASSESSMENT: 1. Acute kidney injury, possibly cardiorenal, currently nonoliguric. We need to rule out urine retention. Check post-void residual. Continue off of IV fluids. I will give Lasix 40 mg x1. Repeat chest x-ray from this morning did show evidence of CHF. Patient is not on any nephrotoxic medications at this time. Avoid hypotension. 2. Hypertension. Blood pressure was high, currently slightly better controlled. 3. Elevated troponin; being followed by Cardiology. 4. Mild hyperkalemia. Expect improvement with use of loop diuretics. 5. History of right nephrectomy for renal cell cancer. 6. Chronic kidney disease, stage IV to V, being followed by pain management nurse out of town, as patient lives out of town. We have a creatinine of 2.6 in 2016. I am not sure if that is his baseline. 7. 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 PLAN: Diurese patient. Avoid hypotension. Check post-void residual. Check ultrasound of the kidneys. Thank you for this consultation. Will continue to follow the patient with you during his hospitalization. MMODL / IJN: [id number] /
[2019-08-19] MEDS: NITROGLYCERIN OINT 1 INCH/GM PACKET TOPICAL SCH ×2 (00:54→06:17)
[2019-08-19] MEDS: LEVOTHYROXINE 75 MCG TAB PO SCH (06:17)
[2019-08-19] MEDS: INSULIN ASPART (NovoLOG) 100 UNIT/ML VIAL SQ SCH (06:49)
[2019-08-19 07:04] LABS: Anisocytosis Slight; Basophils % (A) 1 %; Eosinophils # (A) 0.4 k/uL (0-0.7); Eosinophils % (A) 5 %; HCT 27.7 % (39.0-53.0); HGB 9.2 gm/dL (13.0-17.5); Hypochromasia Slight; Lymphocytes # (A) 1.6 k/uL (1.0-4.8); Lymphocytes % (A) 20 %; MCH 29.7 pg (25.0-35.0); MCHC 33.4 g/dL (31.0-37.0); MCV 89.2 fL (80.0-100.0); Mean Platelet Volume 7.8; Monocytes # (A) 0.4 k/uL (0-1.0); Monocytes % (A) 5 %; Neutrophils # (A) 5.3 k/uL (1.3-7.7); Neutrophils % (A) 68 %; Platelet Count 198 k/uL (150-450); RBC 3.11 m/uL (4.30-5.90); RDW 16.4 % (11.5-15.5); WBC 7.7 k/uL (3.8-10.6)
[2019-08-19 07:09] LABS: Glucose,Whole Blood 148 mg/dL (75-99)
[2019-08-19] MEDS: IPRATROPIUM-ALBUTEROL 3 ML NEB INHALATION SCH ×3 (07:22→20:06)
[2019-08-19 07:27] LABS: Potassium 5.1 mmol/L (3.5-5.1)
[2019-08-19] MEDS ORDERED: ASPIRIN 325 MG TAB PO SCH (09:00)
--- NOTE | 2019-08-19 09:31 | PN ---
PROGRESS NOTE DATE OF SERVICE: August 19, 2019. Mr. Yost is a 78-year-old male who we saw yesterday in consultation. He came in on August 17 at 2206 hours complaining of chest pain. The patient apparently complained of chest pain only the day of admission. It occurred when he was apparently carrying or moving some groceries. The patient was found yesterday did have acute congestive heart failure. He was diuresed. Nitro paste was added. He was placed on BiPAP. Today he is doing much better. He does have a history of CAD with previous bypass grafting. The patient is doing much better. The patient currently is not on any supplemental oxygen. Not having any chest pain. Shortness of breath apparently is much improved. The patient is not having any shortness of breath at this time. The nurse, Itzel is in the room with us while we were evaluating the patient. PHYSICAL EXAMINATION: VITAL SIGNS: Current vital signs are reviewed. Temperature is 97.8. Heart rate 74, respiratory rate 15, blood pressure 134/61 mean 85 and room air saturation 95%. GENERAL: Appears in no acute distress. HEENT examination is grossly unremarkable. Mucous membranes are moist. No oral lesions. NECK: Supple. Full range of motion. No adenopathy, thyromegaly or neck vein distention. CARDIOVASCULAR examination reveals regular rhythm and rate. Heart rate 75 beats per minute. S1, S2 normal. Harsh systolic murmur is noted. No S3, S4. LUNGS: Reveal mostly clear breath sounds. No wheezes or rhonchi. No crackles. Breath sounds equal. ABDOMEN: Soft. Bowel sounds are heard. EXTREMITIES are intact. Mild edema. No cyanosis or clubbing. SKIN: Without rash. The rest of the examination is unremarkable. NEUROLOGIC examination is brief but nonfocal. LABS: Reviewed. White count 7.7, hemoglobin 9.2, hematocrit 27.7, platelet count 198,000. PTT is 75.4. Sodium 142, potassium 5.1, chloride 108, CO2 24, anion gap is 10, BUN and creatinine were 51 and 3.39. N-terminal proBNP on admission was 2480. Cardiac enzymes were mildly elevated. Chest x-ray from the shows evidence of congestive heart failure. ASSESSMENT: 1. Shortness of breath, secondary to congestive heart failure. 2. Doubt pulmonary embolism. 3. Asthma, inactive. 4. Rule out myocardial infarction. 5. History of coronary artery disease with previous bypass grafting. 6. Status post right nephrectomy for hypernephroma. 7. Chest pain on admission. 8. Diabetes mellitus. 9. Hyperlipidemia. 10.History of hypertension. 11.Degenerative joint disease. PLAN: The patient responded nicely to BiPAP at 10 and 5. We turned down his IVs to KVO. We added nitroglycerin at 1 inch q.6 hours. We gave the patient some additional Lasix 20 mg IV push. A few minutes prior to that, he received 40 mg of Lasix IV push. The patient improved nicely over the late afternoon and pe teacher hours. We will continue to follow. Prognosis is guarded. MMODL / IJN: [id number] /
[2019-08-19] MEDS: LINAGLIPTIN 5 MG TABLET PO SCH (09:57)
[2019-08-19] MEDS: amLODIPine 5 MG TAB PO SCH ×2 (09:57→20:08)
[2019-08-19] MEDS: MAGNESIUM OXIDE 400 MG TAB PO SCH (09:57)
--- NOTE | 2019-08-19 10:56 | P.PN ---
Subjective Progress Note Date: 08/19/19 Principal diagnosis: This is 78-year-old male seen in consultation because of acute kidney injury and chronic kidney disease. He came in because of chest pain and shortness of kwasi ath. He is known with coronary artery disease. He had a creatinine of 2.89 in October 2016. 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 He is being diuresed and has urine output is 1600 mL. Creatinine is somewhat better from 3.7-3.39. His chest pain is resolved his shortness of breath is better. Continues to feel weak and tired and complains of tremors for the last 2 days which is new. Objective - Vital Signs Vital signs: Vital Signs Temp 97.8 F 08/19/19 04:00 Pulse 80 08/19/19 07:38 Resp 15 08/19/19 04:00 BP 134/61 08/19/19 04:00 Pulse Ox 95 08/19/19 07:23 Intake & Output 08/18/19 08/19/19 08/19/19 18:59 06:59 18:59 Intake Total 430.000 320 120 Output Total 950 700 Balance -520.000 -380 120 Weight 96.9 kg Intake: IV 320 Sodium Chloride 0.9% 1, 320 000 ml @ 75 mls/hr IV . [id number] [facility] Rx#:[id number] Intake, IV Titration 250.000 Amount Heparin Sod,Pork in 0.45% 250.000 NaCl 25,000 unit In 0.45 % NaCl 1 250ml.bag @ 18 UNITS/KG/HR 17.064 mls/hr IV .[id number] [facility] Rx#: [id number] Oral 180 120 Output: Urine 950 700 Other: Voiding Method Urinal Urinal # Voids 1 2 On examination is awake alert oriented comfortable HEENT exam no JVP neck is supple no facial asymmetry Lungs are significant for bilateral fine crackles at bases with good air entry bilaterally Heart sounds are remarkable for grade 2-3 systolic ejection murmur with poor cardiac upstrokes suggestive of aortic stenosis Abdomen soft nontender no organomegaly ascites masses Extremity exam was minimal to trace edema Neurologically awake alert oriented with mild tremors no asterixis. Generalized weakness but no focal motor deficit - Labs CBC & Chem 7: 08/19/19 06:08 08/19/19 06:08 Labs: Abnormal Lab Results - Last 24 Hours (Table) 08/18/19 08/18/19 08/18/19 Range/Units 11:44 11:44 11:48 RBC (4.30-5.90) m/uL Hgb (13.0-17.5) gm/dL Hct (39.0-53.0) % RDW (11.5-15.5) % APTT (22.0-30.0) sec Potassium 5.3 H (3.5-5.1) mmol/L Chloride 109 H (98-107) mmol/L Carbon Dioxide 20 L (22-30) mmol/L BUN 51 H (9-20) mg/dL Creatinine 3.26 H (0.66-1.25) mg/dL Glucose 145 H (74-99) mg/dL POC Glucose (mg/dL) 152 H (75-99) mg/dL Troponin I 0.046 H* (0.000-0.034) ng/mL Triglycerides (<150) mg/dL 08/18/19 08/18/19 08/18/19 Range/Units 17:26 18:05 21:16 RBC (4.30-5.90) m/uL Hgb (13.0-17.5) gm/dL Hct (39.0-53.0) % RDW (11.5-15.5) % APTT 64.4 H (22.0-30.0) sec Potassium (3.5-5.1) mmol/L Chloride (98-107) mmol/L Carbon Dioxide (22-30) mmol/L BUN (9-20) mg/dL Creatinine (0.66-1.25) mg/dL Glucose (74-99) mg/dL POC Glucose (mg/dL) 112 H 101 H (75-99) mg/dL Troponin I (0.000-0.034) ng/mL Triglycerides (<150) mg/dL 08/19/19 08/19/19 08/19/19 Range/Units 06:08 06:08 06:08 RBC 3.11 L (4.30-5.90) m/uL Hgb 9.2 L (13.0-17.5) gm/dL Hct 27.7 L (39.0-53.0) % RDW 16.4 H (11.5-15.5) % APTT 75.4 H (22.0-30.0) sec Potassium (3.5-5.1) mmol/L Chloride 108 H (98-107) mmol/L Carbon Dioxide (22-30) mmol/L BUN 51 H (9-20) mg/dL Creatinine 3.39 H (0.66-1.25) mg/dL Glucose 138 H (74-99) mg/dL POC Glucose (mg/dL) (75-99) mg/dL Troponin I (0.000-0.034) ng/mL Triglycerides 263 H (<150) mg/dL 08/19/19 Range/Units 06:48 RBC (4.30-5.90) m/uL Hgb (13.0-17.5) gm/dL Hct (39.0-53.0) % RDW (11.5-15.5) % APTT (22.0-30.0) sec Potassium (3.5-5.1) mmol/L Chloride (98-107) mmol/L Carbon Dioxide (22-30) mmol/L BUN (9-20) mg/dL Creatinine (0.66-1.25) mg/dL Glucose (74-99) mg/dL POC Glucose (mg/dL) 148 H (75-99) mg/dL Troponin I (0.000-0.034) ng/mL Triglycerides (<150) mg/dL Assessment and Plan Assessment: Impression 1. Acute kidney injury from cardiorenal syndrome and congestive heart failure. 2. Chronic kidney disease stage III-IV with a baseline creatinine of 2.89 secon deshaun to combination of diabetic nephropathy with 2+ proteinuria dated 11/27/2016, not quantified, additionally nephrosclerosis and right nephrectomy for CA of the kidney in the remote past. 3. Admitted with chest pain and shortness of breath with congestive heart failure. Rule out coronary syndrome 4. History of coronary artery bypass graft and subsequent stent. 5. Status post right nephrectomy remote past for CA. 6. Anemia of chronic kidney disease with hemoglobin 9.2 Recommendation 1 IV Lasix 40 every 12. 2. Monitor labs daily 3. Check iron saturation
[2019-08-19] MEDS: HEPARIN SOD,PORK IN 0.45% NACL 25,000 UNIT in 0.45% NACL 1 250ML.BAG IV SCH (12:00)
[2019-08-19 12:08] LABS: Glucose,Whole Blood 200 mg/dL (75-99)
--- NOTE | 2019-08-19 12:38 | P.PN ---
Subjective Progress Note Date: 08/19/19 78-year-old gentleman with history of coronary artery disease and prior bypass surgery as well as subsequent stent placements, the exact details patient was unable to provide, his procedures were performed in [facility]. He also has a history of hypertension, diabetes, hyperlipidemia, hypothyroidism, history of kidney cancer for which the patient underwent a nephrectomy in the past, he also has history of subsequent to cancer, neither times to the patient re-require any chemotherapy. Patient follows with a counter waitress/waiter in the [place] area, his ophthalmic photographer is also in [facility]. Patient presents to the hospital with symptoms of left knee discomfort as well as chest pain. He states that he was walking in his house, that a sharp pain behind his knee, felt like his leg was going to give out on him, he threw himself down onto the couch and shortly thereafter developed midsternal chest pressure with associated shortness of breath. He states that the symptoms lasted a few minutes and dissipated. The symptoms did return again shortly thereafter and for this reas on the patient came to the emergency room for further evaluation and treatment. His chest x-ray on presentation here did not reveal any active cardiopulmonary disease. Initial EKG showed a normal sinus rhythm with incomplete right bundle branch block pattern and nonspecific ST-T wave changes. Blood pressure this morning 172/73 with a heart rate in the 70s, 96% on room air. White blood cell count 7.8, hemoglobin 8.8, platelet count 212. D-dimer 0.80. Sodium 140, potassium 5.1, BUN 54, creatinine 3.7. Magnesium 1.9. ALT 18, alk phos 132, troponin 0.018, 0.047. BNP 2480. 08/19/2019 Patient is seen and evaluated in room at bedside; patient has been taken off of BiPAP; he is resting comfortably in bed and denies any complaint of shortness of breath or chest pain; does complain of generalized body aches and requesting Tylenol Vital signs are stable with a temperature of 97.8, pulse 74, respiration 15 and blood pressure 134/61 with SpO2 of 95% on 2 L Laboratory review shows a white blood count of 7.7, hemoglobin of 9.2 and platelet count of 198; sodium of 142, potassium 5.1 with BUN of 51 and creatinine 3.39 which has trended up slightly from BUN of 51 and creatinine of 3.26 yesterday; VQ scan is done and is low probability for PE; patient is being cautiously diuresed by nephrology; renal ultrasound is done and is negative; echocardiogram shows severe LVH with left atrial dilatation and severe aortic stenosis with mild aortic regurg and severe mitral regurgitation Patient remains on IV heparin; await further recommendations from cardiology service Objective - Vital Signs Vital signs: Vital Signs Temp 97.8 F 08/19/19 04:00 Pulse 80 08/19/19 07:38 Resp 15 08/19/19 04:00 BP 134/61 08/19/19 04:00 Pulse Ox 95 08/19/19 07:23 Intake & Output 08/18/19 08/19/19 08/19/19 18:59 06:59 18:59 Intake Total 430.000 320 Output Total 950 700 Balance -520.000 -380 Weight 96.9 kg Intake: IV 320 Sodium Chloride 0.9% 1, 320 000 ml @ 75 mls/hr IV . [id number] [facility] Rx#:[id number] Intake, IV Titration 250.000 Amount Heparin Sod,Pork in 0.45% 250.000 NaCl 25,000 unit In 0.45 % NaCl 1 250ml.bag @ 18 UNITS/KG/HR 17.064 mls/hr IV .[id number] [facility] Rx#: [id number] Oral 180 Output: Urine 950 700 Other: Voiding Method Urinal Urinal # Voids 1 2 - Exam - Constitutional General appearance: Present: average body habitus, cooperative, no acute distress - EENT Eyes: Present: anicteric sclerae, EOMI, PERRLA, normal appearance ENT: Present: hearing grossly normal, normal oropharynx Ears: bilateral: normal - Neck Neck: Present: normal ROM. Absent: lymphadenopathy, rigidity, thyromegaly Carotids: negative: bruit present Thyroid: bilateral: normal size, negative: enlarged, nodule - Respiratory Respiratory: bilateral: CTA, negative: rales, rhonchi, wheezing - Cardiovascular Rhythm: regular Heart sounds: normal: S1, S2 Abnormal Heart Sounds: Absent: systolic murmur, diastolic murmur - Gastrointestinal General gastrointestinal: Present: normal bowel sounds, soft. Absent: distended, organomegaly, tenderness - Genitourinary Genitourinary Comment(s): deferred - Integumentary Integumentary: Present: normal turgor. Absent: jaundiced, rash, ulcer - Neurologic Neurologic: Present: CNII-XII intact. Absent: focal deficits - Musculoskeletal Musculoskeletal: Present: gait normal, strength equal bilaterally - Psychiatric Psychiatric: Present: A&O x's 3, appropriate affect, intact judgment & insight - Labs CBC & Chem 7: 08/19/19 06:08 08/19/19 06:08 Labs: Abnormal Lab Results - Last 24 Hours (Table) 08/18/19 08/18/19 08/18/19 Range/Units 08:50 10:22 11:44 RBC (4.30-5.90) m/uL Hgb (13.0-17.5) gm/dL Hct (39.0-53.0) % RDW (11.5-15.5) % APTT 174.5 H* (22.0-30.0) sec Potassium (3.5-5.1) mmol/L Chloride (98-107) mmol/L Carbon Dioxide (22-30) mmol/L BUN (9-20) mg/dL Creatinine (0.66-1.25) mg/dL Glucose (74-99) mg/dL POC Glucose (mg/dL) 142 H (75-99) mg/dL Troponin I 0.046 H* (0.000-0.034) ng/mL Triglycerides (<150) mg/dL 08/18/19 08/18/19 08/18/19 Range/Units 11:44 11:48 17:26 RBC (4.30-5.90) m/uL Hgb (13.0-17.5) gm/dL Hct (39.0-53.0) % RDW (11.5-15.5) % APTT (22.0-30.0) sec Potassium 5.3 H (3.5-5.1) mmol/L Chloride 109 H (98-107) mmol/L Carbon Dioxide 20 L (22-30) mmol/L BUN 51 H (9-20) mg/dL Creatinine 3.26 H (0.66-1.25) mg/dL Glucose 145 H (74-99) mg/dL POC Glucose (mg/dL) 152 H 112 H (75-99) mg/dL Troponin I (0.000-0.034) ng/mL Triglycerides (<150) mg/dL 08/18/19 08/18/19 08/19/19 Range/Units 18:05 21:16 06:08 RBC (4.30-5.90) m/uL Hgb (13.0-17.5) gm/dL Hct (39.0-53.0) % RDW (11.5-15.5) % APTT 64.4 H (22.0-30.0) sec Potassium (3.5-5.1) mmol/L Chloride 108 H (98-107) mmol/L Carbon Dioxide (22-30) mmol/L BUN 51 H (9-20) mg/dL Creatinine 3.39 H (0.66-1.25) mg/dL Glucose 138 H (74-99) mg/dL POC Glucose (mg/dL) 101 H (75-99) mg/dL Troponin I (0.000-0.034) ng/mL Triglycerides 263 H (<150) mg/dL 08/19/19 08/19/19 08/19/19 Range/Units 06:08 06:08 06:48 RBC 3.11 L (4.30-5.90) m/uL Hgb 9.2 L (13.0-17.5) gm/dL Hct 27.7 L (39.0-53.0) % RDW 16.4 H (11.5-15.5) % APTT 75.4 H (22.0-30.0) sec Potassium (3.5-5.1) mmol/L Chloride (98-107) mmol/L Carbon Dioxide (22-30) mmol/L BUN (9-20) mg/dL Creatinine (0.66-1.25) mg/dL Glucose (74-99) mg/dL POC Glucose (mg/dL) 148 H (75-99) mg/dL Troponin I (0.000-0.034) ng/mL Triglycerides (<150) mg/dL Assessment and Plan Assessment: 1. Acute hypoxic respiratory failure; possibly secondary to CHF -Patient currently remains on BiPAP; pulmonary is on board await further recommendations 2. Acute exacerbation CHF - Trend troponin every 43; monitor EKG; cardiac was ordered and pending - Continue with Lasix 20 mg IV every 12 hours; monitor strict ALEXEI's and daily weights; continue with low-salt and fluid restricted diet 3. Chest pain associated with shortness of breath; possible ACS - Troponin came back elevated and trending up from 0.0.8 to 0.047 - Cardiology is following and recommending to continue with aspirin 81 g daily, Lipitor, Plavix and IV heparin - Patient is started on low-dose beta blockers per cardiology recommendations - Plan to hold off on YANETH inhibitor therapy because of renal function 4. Acute on chronic kidney disease; patient has history of renal carcinoma with history of right nephrectomy; BUN/creatinine of 48/3.5; we will monitor strict ALEXEI's, daily weights, renal function and electrolytes; avoid nephrotoxins and hypotension; consult nephrology for further recommendations 5. Elevated d-dimer; pulmonary is following; VQ scan is ordered and pending 6. CAD/prior bypass surgery and stent placement 7. Diabetes mellitus; Levemir 40 mg subcu daily at bedtime; monitor Accu-Cheks every before meals and at bedtime with insulin sliding scale; continue with Tradjenta mg daily 8. Hypertension; amlodipine 5 mg by mouth twice a day 9. Hyperlipidemia; continue with home dose of Lipitor at 40 mg by mouth daily at bedtime 10. Hypothyroidism; clinically euthyroid on home dose of Synthroid 11. DVT prophylaxis; systemic anticoagulation with heparin CODE STATUS; full code Time with Patient: Greater than 30
[2019-08-19] MEDS: FUROSEMIDE 40 MG TAB PO SCH (13:26)
[2019-08-19] MEDS: ISOSORBIDE MONONITRATE ER 30 MG TAB.ER.24H PO SCH (13:26)
[2019-08-19] MEDS: ACETAMINOPHEN TAB 325 MG TAB PO PRN (13:26)
[2019-08-19] MEDS: ASPIRIN 81 MG PO SCH (13:26)
[2019-08-19] MEDS ORDERED: ARTIFICIAL TEARS-HYPROMELLOSE DROPS 15 ML BTL BOTH EYES PRN (13:59)
[2019-08-19 16:37] LABS: Iron Saturation 15.94 (15.00-50.00)
[2019-08-19 17:08] LABS: Glucose,Whole Blood 204 mg/dL (75-99)
[2019-08-19] MEDS: CLOPIDOGREL 75 MG TAB PO SCH (20:08)
[2019-08-19] MEDS: ATORVASTATIN 40 MG TAB PO SCH (20:08)
[2019-08-19] MEDS: INSULIN DETEMIR (LEVEMIR) 100 UNIT/ML SYR SQ SCH (20:10)
[2019-08-19 20:17] LABS: Glucose,Whole Blood 209 mg/dL (75-99)
[2019-08-20] MEDS: HEPARIN SOD,PORK IN 0.45% NACL 25,000 UNIT in 0.45% NACL 1 250ML.BAG IV SCH ×2 (02:06→19:33)
[2019-08-20] MEDS: LEVOTHYROXINE 75 MCG TAB PO SCH (05:44)
[2019-08-20 06:17] LABS: Anisocytosis Slight; Basophils % (A) 1 %; Eosinophils # (A) 0.4 k/uL (0-0.7); Eosinophils % (A) 5 %; HCT 26.8 % (39.0-53.0); HGB 8.8 gm/dL (13.0-17.5); Hypochromasia Slight; Lymphocytes # (A) 1.4 k/uL (1.0-4.8); Lymphocytes % (A) 21 %; MCH 29.2 pg (25.0-35.0); MCHC 32.7 g/dL (31.0-37.0); MCV 89.2 fL (80.0-100.0); Mean Platelet Volume 8.3; Monocytes # (A) 0.4 k/uL (0-1.0); Monocytes % (A) 6 %; Neutrophils # (A) 4.6 k/uL (1.3-7.7); Neutrophils % (A) 66 %; Platelet Count 207 k/uL (150-450); RBC 3.01 m/uL (4.30-5.90); RDW 16.5 % (11.5-15.5)
[2019-08-20 07:24] LABS: Calcium 9.2 mg/dL (8.4-10.2); Potassium 4.8 mmol/L (3.5-5.1)
[2019-08-20] MEDS: IPRATROPIUM-ALBUTEROL 3 ML NEB INHALATION SCH ×3 (07:28→19:45)
[2019-08-20 07:29] LABS: Glucose,Whole Blood 134 mg/dL (75-99)
[2019-08-20] MEDS: INSULIN ASPART (NovoLOG) 100 UNIT/ML VIAL SQ SCH (07:45)
[2019-08-20] MEDS: ISOSORBIDE MONONITRATE ER 30 MG TAB.ER.24H PO SCH (08:59)
[2019-08-20] MEDS: MAGNESIUM OXIDE 400 MG TAB PO SCH (08:59)
[2019-08-20] MEDS: ASPIRIN 81 MG PO SCH (08:59)
[2019-08-20] MEDS: FUROSEMIDE 40 MG TAB PO SCH (08:59)
[2019-08-20] MEDS: amLODIPine 5 MG TAB PO SCH ×2 (08:59→19:43)
[2019-08-20] MEDS: LINAGLIPTIN 5 MG TABLET PO SCH (08:59)
--- NOTE | 2019-08-20 10:02 | P.PN ---
Subjective Progress Note Date: 08/20/19 Principal diagnosis: This is 78-year-old male seen in consultation because of acute kidney injury secondary to cardiorenal syndrome, congestive heart failure and chronic kidney disease. He came in because of chest pain and shortness of breath. He is known with coronary artery disease. He had a creatinine of 2.89 in October 2016. 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 He is being diuresed and has urine output is 1600 mL yesterday and this morning is recorded as 350. Creatinine is somewhat better from 3.7-3.39, but increase back to 3.67 this morning. His chest pain is resolved his shortness of breath is better. Continues to feel weak and tired and complains of tremors for the last 2 days which is new. He also has epistaxis from his left nostril this morning with A orthostatic blood pressure done by me showed supine blood pressure 166/71 and a heart rate of 82. On standing up blood pressure is 136/55 with a heart rate of 94. Objective - Vital Signs Vital signs: Vital Signs Temp 97.8 F 08/20/19 03:21 Pulse 80 08/20/19 07:50 Resp 14 08/20/19 03:24 BP 160/69 08/20/19 03:21 Pulse Ox 94 L 08/20/19 03:21 Intake & Output 08/19/19 08/20/19 08/20/19 18:59 06:59 18:59 Intake Total 850 1080.502 240 Output Total 350 Balance 850 730.502 240 Weight 96.9 kg Intake: Intake, IV Titration 250 200.502 Amount Heparin Sod,Pork in 0.45% 250 200.502 NaCl 25,000 unit In 0.45 % NaCl 1 250ml.bag @ 18 UNITS/KG/HR 17.064 mls/hr IV .[id number] [facility] Rx#: [id number] Oral 600 880 240 Output: Urine 350 Other: Voiding Method Urinal Urinal # Voids 1 2 On examination awake alert oriented comfortable. He is on nasal cannula oxygen HEENT exam no JVP neck is supple no facial asymmetry Lungs are significant for bilateral fine crackles at both sites extensive. Fair air entry but less than optimal Heart sounds are unremarkable for any murmur rub gallop Abdomen soft nontender Extremity exam was no edema Neurologically awake alert oriented On standing up he was dizzy and had postural drop as noted below - Labs CBC & Chem 7: 08/20/19 05:37 08/20/19 05:37 Labs: Abnormal Lab Results - Last 24 Hours (Table) 08/19/19 08/19/19 08/19/19 Range/Units 06:08 12:06 17:05 RBC (4.30-5.90) m/uL Hgb (13.0-17.5) gm/dL Hct (39.0-53.0) % RDW (11.5-15.5) % APTT (22.0-30.0) sec Chloride (98-107) mmol/L BUN (9-20) mg/dL Creatinine (0.66-1.25) mg/dL Glucose (74-99) mg/dL POC Glucose (mg/dL) 200 H 204 H (75-99) mg/dL Iron 40 L (65-175) ug/dL U Random Total Protein (<12) mg/dL 08/19/19 08/19/19 08/20/19 Range/Units 20:00 20:15 05:37 RBC 3.01 L (4.30-5.90) m/uL Hgb 8.8 L (13.0-17.5) gm/dL Hct 26.8 L (39.0-53.0) % RDW 16.5 H (11.5-15.5) % APTT (22.0-30.0) sec Chloride (98-107) mmol/L BUN (9-20) mg/dL Creatinine (0.66-1.25) mg/dL Glucose (74-99) mg/dL POC Glucose (mg/dL) 209 H (75-99) mg/dL Iron (65-175) ug/dL U Random Total Protein 96 H (<12) mg/dL 08/20/19 08/20/19 08/20/19 Range/Units 05:37 05:37 07:27 RBC (4.30-5.90) m/uL Hgb (13.0-17.5) gm/dL Hct (39.0-53.0) % RDW (11.5-15.5) % APTT 74.1 H (22.0-30.0) sec Chloride 110 H (98-107) mmol/L BUN 52 H (9-20) mg/dL Creatinine 3.67 H (0.66-1.25) mg/dL Glucose 135 H (74-99) mg/dL POC Glucose (mg/dL) 134 H (75-99) mg/dL Iron (65-175) ug/dL U Random Total Protein (<12) mg/dL Assessment and Plan Assessment: Impression 1. Acute kidney injury from cardiorenal syndrome and congestive heart failure. Creatinine went up to 3.67 after having improved. Has significant postural drop. A orthostatic blood pressure done by me showed supine blood pressure 166/71 and a heart rate of 82. On standing up blood pressure is 136/55 with a heart rate of 94. A severe aortic stenosis noted in the echocardiogram which may be adding to the lack of perfusion of his kidneys although his blood pressure is in the 150-160 range 2. Chronic kidney disease stage III-IV with a baseline creatinine of 2.89 secondary to combination of diabetic nephropathy with 2+ proteinuria dated 11/27/2016, not quantified, additionally nephrosclerosis and right nephrectomy for CA of the kidney in the remote past. 3. Admitted with chest pain and shortness of breath with congestive heart failure. Rule out coronary syndrome 4. History of coronary artery bypass graft and subsequent stent. 5. Status post right nephrectomy remote past for CA. 6. Anemia of chronic kidney disease with hemoglobin 9.2 Recommendation 1. Hold Lasix, because of the orthostatic changes and increase in creatinine 2. Monitor labs daily 3. Check iron saturation 4. Check chest x-ray as he continues to have crackles in spite of having orthostatic changes
--- NOTE | 2019-08-20 10:46 | XR ---
EXAMINATION TYPE: XR chest 2V DATE OF EXAM: 08/20/2019 HISTORY: chf. REFERENCE: Previous study dated 08/18/2019. FINDINGS: There has been a midline sternotomy. Heart size upper limits of normal. Pulmonary vasculatu re has improved. Interstitial change has improved. I could not exclude some scant effusions. IMPRESSION: IMPROVING CHANGES OF CONGESTIVE HEART FAILURE.
--- NOTE | 2019-08-20 11:21 | P.PN ---
Subjective Progress Note Date: 08/20/19 Principal diagnosis: Acute hypoxic respiratory failure Acute exacerbation CHF Acute on chronic renal failure Chest pain 78-year-old gentleman with history of coronary artery disease and prior bypass surgery as well as subsequent stent placements, the exact details patient was unable to provide, his procedures were performed in [facility]. He also has a history of hypertension, diabetes, hyperlipidemia, hypothyroidism, history of kidney cancer for which the patient underwent a nephrectomy in the past, he also has history of subsequent to cancer, neither times to the patient re-require any chemotherapy. 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 Patient presents to the hospital with symptoms of left knee discomfort as well as chest pain. He states that he was walking in his house, that a sharp pain behind his knee, felt like his leg was going to give out on him, he threw himself down onto the couch and shortly thereafter developed midsternal chest pressure with associated shortness of breath. He states that the symptoms lasted a few minutes and dissipated. The symptoms did return again shortly thereafter and for this reason the patient came to the emergency room for further evaluation and treatment. His chest x-ray on presentation here did not reveal any active cardiopulmonary disease. Initial EKG showed a normal sinus rhythm with incomplete right bundle branch block pattern and nonspecific ST-T wave changes. Blood pressure this morning 172/73 with a heart rate in the 70s, 96% on room air. White blood cell count 7.8, hemoglobin 8.8, platelet count 212. D-dimer 0.80. Sodium 140, potassium 5.1, BUN 54, creatinine 3.7. Magnesium 1.9. ALT 18, alk phos 132, troponin 0.018, 0.047. BNP 2480. 08/19/2019 Patient is seen and evaluated in room at bedside; patient has been taken off of BiPAP; he is resting comfortably in bed and denies any complaint of shortness of breath or chest pain; does complain of generalized body aches and requesting Tylenol Vital signs are stable with a temperature of 97.8, pulse 74, respiration 15 and blood pressure 134/61 with SpO2 of 95% on 2 L Laboratory review shows a white blood count of 7.7, hemoglobin of 9.2 and platelet count of 198; sodium of 142, potassium 5.1 with BUN of 51 and creatinine 3.39 which has trended up slightly from BUN of 51 and creatinine of 3.26 yesterday; VQ scan is done and is low probability for PE; patient is being cautiously diuresed by nephrology; renal ultrasound is done and is negative; echocardiogram shows severe LVH with left atrial dilatation and severe aortic stenosis with mild aortic regurg and severe mitral regurgitation Patient remains on IV heparin; await further recommendations from cardiology service 08/20/2019 Patient is seen and evaluated in room with family members at bedside; patient complaining of burning and itching of right eye along with bloody nose; patient reports that he has been stuffing napkins in the nostrils Epistaxis; patient remains on IV heparin per cardiology recommendations; we will try tranexamic acid to control bleeding; discontinue IV heparin if epistaxis continues Right conjunctivitis; Garamycin eyedrops 4 times a day to both eyes Acute on chronic renal failure; patient is positive for orthostatic hypotension; nephrology is following and recommending to hold Lasix because of orthostatic changes and increasing creatinine and monitor labs daily Acute exacerbation CHF; repeat chest x-ray is ordered since patient continues to have evidence of CHF and is unable to receive diuretics because of worsening renal failure and postural hypotension Multiple falls at home; we will order PT/OT once clinically stable Objective - Vital Signs Vital signs: Vital Signs Temp 97.8 F 08/20/19 03:21 Pulse 80 08/20/19 07:50 Resp 14 08/20/19 03:24 BP 160/69 08/20/19 03:21 Pulse Ox 94 L 08/20/19 03:21 Intake & Output 08/19/19 08/20/19 08/20/19 18:59 06:59 18:59 Intake Total 850 1080.502 Output Total 350 Balance 850 730.502 Weight 96.9 kg Intake: Intake, IV Titration 250 200.502 Amount Heparin Sod,Pork in 0.45% 250 200.502 NaCl 25,000 unit In 0.45 % NaCl 1 250ml.bag @ 18 UNITS/KG/HR 17.064 mls/hr IV .[id number] [facility] Rx#: [id number] Oral 600 880 Output: Urine 350 Other: Voiding Method Urinal Urinal # Voids 1 2 - Exam - Constitutional General appearance: Present: average body habitus, cooperative, no acute distress - EENT Eyes: Present: anicteric sclerae, EOMI, PERRLA, normal appearance ENT: Present: hearing grossly normal, normal oropharynx Ears: bilateral: normal - Neck Neck: Present: normal ROM. Absent: lymphadenopathy, rigidity, thyromegaly Carotids: negative: bruit present Thyroid: bilateral: normal size, negative: enlarged, nodule - Respiratory Respiratory: bilateral: CTA, negative: rales, rhonchi, wheezing - Cardiovascular Rhythm: regular Heart sounds: normal: S1, S2 Abnormal Heart Sounds: Absent: systolic murmur, diastolic murmur - Gastrointestinal General gastrointestinal: Present: normal bowel sounds, soft. Absent: distended, organomegaly, tenderness - Genitourinary Genitourinary Comment(s): deferred - Integumentary Integumentary: Present: normal turgor. Absent: jaundiced, rash, ulcer - Neurologic Neurologic: Present: CNII-XII intact. Absent: focal deficits - Musculoskeletal Musculoskeletal: Present: gait normal, strength equal bilaterally - Psychiatric Psychiatric: Present: A&O x's 3, appropriate affect, intact judgment & insight - Labs CBC & Chem 7: 08/20/19 05:37 08/20/19 05:37 Labs: Abnormal Lab Results - Last 24 Hours (Table) 08/19/19 08/19/19 08/19/19 Range/Units 06:08 12:06 17:05 RBC (4.30-5.90) m/uL Hgb (13.0-17.5) gm/dL Hct (39.0-53.0) % RDW (11.5-15.5) % APTT (22.0-30.0) sec Chloride (98-107) mmol/L BUN (9-20) mg/dL Creatinine (0.66-1.25) mg/dL Glucose (74-99) mg/dL POC Glucose (mg/dL) 200 H 204 H (75-99) mg/dL Iron 40 L (65-175) ug/dL U Random Total Protein (<12) mg/dL 08/19/19 08/19/19 08/20/19 Range/Units 20:00 20:15 05:37 RBC 3.01 L (4.30-5.90) m/uL Hgb 8.8 L (13.0-17.5) gm/dL Hct 26.8 L (39.0-53.0) % RDW 16.5 H (11.5-15.5) % APTT (22.0-30.0) sec Chloride (98-107) mmol/L BUN (9-20) mg/dL Creatinine (0.66-1.25) mg/dL Glucose (74-99) mg/dL POC Glucose (mg/dL) 209 H (75-99) mg/dL Iron (65-175) ug/dL U Random Total Protein 96 H (<12) mg/dL 08/20/19 08/20/19 08/20/19 Range/Units 05:37 05:37 07:27 RBC (4.30-5.90) m/uL Hgb (13.0-17.5) gm/dL Hct (39.0-53.0) % RDW (11.5-15.5) % APTT 74.1 H (22.0-30.0) sec Chloride 110 H (98-107) mmol/L BUN 52 H (9-20) mg/dL Creatinine 3.67 H (0.66-1.25) mg/dL Glucose 135 H (74-99) mg/dL POC Glucose (mg/dL) 134 H (75-99) mg/dL Iron (65-175) ug/dL U Random Total Protein (<12) mg/dL Assessment and Plan Assessment: 1. Acute hypoxic respiratory failure; possibly secondary to CHF -Patient currently remains on BiPAP; pulmonary is on board await further recommendations 2. Acute exacerbation CHF - Trend troponin every 43; monitor EKG; cardiac was ordered and pending - Continue with Lasix 20 mg IV every 12 hours; monitor strict ALEXEI's and daily weights; continue with low-salt and fluid restricted diet 3. Chest pain associated with shortness of breath; possible ACS - Troponin came back elevated and trending up from 0.0.8 to 0.047 - Cardiology is following and recommending to continue with aspirin 81 g daily, Lipitor, Plavix and IV heparin - Patient is started on low-dose beta blockers per cardiology recommendations - Plan to hold off on YANETH inhibitor therapy because of renal function 4. Acute on chronic kidney disease; patient has history of renal carcinoma with history of right nephrectomy; BUN/creatinine of 48/3.5; we will monitor strict ALEXEI's, daily weights, renal function and electrolytes; avoid nephrotoxins and hypotension; consult nephrology for further recommendations 5. Elevated d-dimer; pulmonary is following; VQ scan is ordered and pending 6. CAD/prior bypass surgery and stent placement 7. Diabetes mellitus; Levemir 40 mg subcu daily at bedtime; monitor Accu-Cheks every before meals and at bedtime with insulin sliding scale; continue with Tradjenta mg daily 8. Hypertension; amlodipine 5 mg by mouth twice a day 9. Hyperlipidemia; continue with home dose of Lipitor at 40 mg by mouth daily at bedtime 10. Hypothyroidism; clinically euthyroid on home dose of Synthroid 11. DVT prophylaxis; systemic anticoagulation with heparin CODE STATUS; full code Time with Patient: Greater than 30
[2019-08-20 11:56] LABS: Glucose,Whole Blood 157 mg/dL (75-99)
--- NOTE | 2019-08-20 12:34 | P.PN ---
Subjective Progress Note Date: 08/19/19 This 78-year-old gentleman with history of for chronic renal failure, aortic stenosis and also mitral regurgitation was admitted to the hospital with chest pain and shortness of breath. Patient was found to be in congestive heart failure. He was treated with IV Lasix. He is feeling much better today. He is less short of breath. Lungs show a few rales at bases. His BUN/creatinine are still high. No complaints of chest pain. We'll continue current medical therapy. Patient needs further evaluation to see physical candidate for aortic valve replacement and mitral valve repair. Initially patient wanted to go to his own crutcher helper in [place]. We titrate also patient to the hospital but could not transfer him because of lateral transfer. We'll try to maximize medical therapy and when physically stable will discharge home to follow with his own crutcher helper. Objective - Vital Signs Vital signs: Vital Signs Temp 97.8 F 08/20/19 03:21 Pulse 80 08/20/19 07:50 Resp 14 08/20/19 03:24 BP 160/69 08/20/19 03:21 Pulse Ox 94 L 08/20/19 03:21 Intake & Output 08/19/19 08/20/19 08/20/19 18:59 06:59 18:59 Intake Total 850 1080.502 240 Output Total 350 Balance 850 730.502 240 Weight 96.9 kg Intake: Intake, IV Titration 250 200.502 Amount Heparin Sod,Pork in 0.45% 250 200.502 NaCl 25,000 unit In 0.45 % NaCl 1 250ml.bag @ 18 UNITS/KG/HR 17.064 mls/hr IV .[id number] [facility] Rx#: [id number] Oral 600 880 240 Output: Urine 350 Other: Voiding Method Urinal Urinal # Voids 1 2 - Exam GENERAL EXAM: Patient is alert and oriented and doesn't appear to be in any acute distress HEENT: Normocephalic. Normal reaction of pupils, equal size, normal range of extraocular motion. No erythema or exudates in the throat. NECK: No masses, no nuchal rigidity. CHEST: No chest wall deformity. LUNGS: Bilateral basal rales HEART: S1 and S2 normal. Systolic murmur in the aortic area ABDOMEN: No hepatosplenomegaly, normal bowel sounds, no guarding or rigidity. SKIN: No rashes CENTRAL NERVOUS SYSTEM: No focal deficits. EXTREMITIES: No cyanosis, clubbing or edema. - Labs CBC & Chem 7: 08/20/19 05:37 08/20/19 05:37 Labs: Abnormal Lab Results - Last 24 Hours (Table) 08/19/19 08/19/19 08/19/19 Range/Units 06:08 17:05 20:00 RBC (4.30-5.90) m/uL Hgb (13.0-17.5) gm/dL Hct (39.0-53.0) % RDW (11.5-15.5) % APTT (22.0-30.0) sec Chloride (98-107) mmol/L BUN (9-20) mg/dL Creatinine (0.66-1.25) mg/dL Glucose (74-99) mg/dL POC Glucose (mg/dL) 204 H (75-99) mg/dL Iron 40 L (65-175) ug/dL U Random Total Protein 96 H (<12) mg/dL 08/19/19 08/20/19 08/20/19 Range/Units 20:15 05:37 05:37 RBC 3.01 L (4.30-5.90) m/uL Hgb 8.8 L (13.0-17.5) gm/dL Hct 26.8 L (39.0-53.0) % RDW 16.5 H (11.5-15.5) % APTT (22.0-30.0) sec Chloride 110 H (98-107) mmol/L BUN 52 H (9-20) mg/dL Creatinine 3.67 H (0.66-1.25) mg/dL Glucose 135 H (74-99) mg/dL POC Glucose (mg/dL) 209 H (75-99) mg/dL Iron (65-175) ug/dL U Random Total Protein (<12) mg/dL 08/20/19 08/20/19 08/20/19 Range/Units 05:37 07:27 11:55 RBC (4.30-5.90) m/uL Hgb (13.0-17.5) gm/dL Hct (39.0-53.0) % RDW (11.5-15.5) % APTT 74.1 H (22.0-30.0) sec Chloride (98-107) mmol/L BUN (9-20) mg/dL Creatinine (0.66-1.25) mg/dL Glucose (74-99) mg/dL POC Glucose (mg/dL) 134 H 157 H (75-99) mg/dL Iron (65-175) ug/dL U Random Total Protein (<12) mg/dL Assessment and Plan (1) Acute combined systolic (congestive) and diastolic (congestive) heart failure Current Visit: Yes Status: Acute Code(s): I50.41 - ACUTE COMBINED SYSTOLIC AND DIASTOLIC (CONGESTIVE) HRT FAIL SNOMED Code(s): 057745830062146 (2) Severe aortic stenosis Current Visit: Yes Status: Acute Code(s): I35.0 - NONRHEUMATIC AORTIC (VALVE) STENOSIS SNOMED Code(s): 69943420 (3) Severe mitral regurgitation Current Visit: Yes Status: Acute Code(s): I34.0 - NONRHEUMATIC MITRAL (VALVE) INSUFFICIENCY SNOMED Code(s): 53227134 (4) History of coronary artery bypass graft Current Visit: Yes Status: Acute Code(s): Z95.1 - PRESENCE OF AORTOCORONARY BYPASS GRAFT SNOMED Code(s): 026105570 (5) Chronic renal failure Current Visit: Yes Status: Acute Code(s): N18.9 - CHRONIC KIDNEY DISEASE, UNSPECIFIED SNOMED Code(s): 17922908 Plan: Continue current medical therapy. Chest x-ray in the morning. If clinically stable, will discharge patient on medical therapy to have further evaluation by his own crutcher helper.
--- NOTE | 2019-08-20 12:38 | PN ---
PROGRESS NOTE DATE OF SERVICE: 08/20/2019 This is a 78-year-old male who we saw in consultation 2 days ago. He came in on August 17 with complaints of shortness of breath and chest pain. The patient was found to have heart failure. We treated him with nitro paste, additional Lasix, BiPAP therapy, and we turned his fluids down. I am happy to report that clinically he is doing much better and his chest x-ray is also improved. Today, he is lying flat in bed. Not complaining of any shortness of breath or difficulty breathing. No chest pain or chest pressure. He is down to room air. PHYSICAL EXAMINATION: VITAL SIGNS: Current vital signs include temperature 97.8. Heart rate 80, respiratory rate 14, blood pressure 160/69, mean 99. Room air saturation 94%. Appears in no acute distress. HEENT examination is grossly unremarkable. Mucous membranes are moist. He has some tissue in his nostril because of epistaxis. NECK is supple. Full range of motion. No adenopathy or thyromegaly. Neck veins are flat. CARDIOVASCULAR examination reveals regular rhythm and rate. S1, S2 normal. No S3, S4, or murmur. LUNGS: Reveal mostly clear breath sounds. A few scattered mild crackles. No wheezes or rhonchi. Breath sounds equal. ABDOMEN is soft. Bowel sounds are heard. EXTREMITIES are intact. Minimal to no edema. SKIN: Without rash. NEUROLOGIC: Examination is nonfocal. Chest x-ray shows improving of vascular congestion. LABS: Reviewed. White count 17, hemoglobin 8.8, hematocrit 26.8, platelet count normal. PTT 74.1. Sodium, potassium normal. Chloride 110. CO2 22, anion gap is 9, BUN and creatinine were 52 and 3.67. Microbiology is negative or pending. Chest x-ray and medications are reviewed. ASSESSMENT: 1. Shortness of breath, secondary to congestive heart failure. 2. Doubt pulmonary embolism. 3. Asthma, inactive. 4. History of previous bypass grafting for coronary artery disease. 5. Rule out myocardial infarction. 6. Status post right nephrectomy for hypernephroma. 7. Chest pain on admission. 8. Diabetes mellitus. 9. Hyperlipidemia. 10.History of hypertension. 11.Degenerative joint disease. PLAN: Currently, the patient has been weaned down to room air. His clinical exam is much improved. His chest x-ray is much improved. We will continue to follow. Prognosis is guarded. He is being followed by Nephrology as well. MMODL / IJN: [id number] /
[2019-08-20] MEDS: GENTAMICIN 0.3% OPHTH DROPS 5 ML BTL BOTH EYES SCH ×4 (12:48→23:06)
--- NOTE | 2019-08-20 13:51 | P.PN ---
Subjective Progress Note Date: 08/20/19 This 78-year-old gentleman with history of for chronic renal failure, aortic stenosis and also mitral regurgitation was admitted to the hospital with chest pain and shortness of breath. Patient was found to be in congestive heart failure. He was treated with IV Lasix. He is feeling much better today. He is less short of breath. Lungs show a few rales at bases. His BUN/creatinine are still high. No complaints of chest pain. We'll continue current medical therapy. Patient needs further evaluation to see physical candidate for aortic valve replacement and mitral valve repair. Initially patient wanted to go to his own associate designer in [place]. We titrate also patient to the hospital but could not transfer him because of lateral transfer. We'll try to maximize medical therapy and when physically stable will discharge home to follow with his own associate designer. 08/20: Patient has had a rise in his creatinine to 3.67, BUN 52 and Lasix has been stopped by nephrology. Patient is complaining of nosebleed which he stated started last night at 11:30 PM and has been using Kleenex to 7 his nose. Heparin drip will be discontinued. Patient and his voice interest in having further evaluation for valve surgery and do not want to be transferred. Repeat chest x-ray this morning reveals improving changes of heart failure. Weight is unchanged. Patient is been afebrile, heart rate in the 80s, blood pressure 160/69, pulse ox 94% on room air. Objective - Vital Signs Vital signs: Vital Signs Temp 97.8 F 08/20/19 03:21 Pulse 80 08/20/19 07:50 Resp 14 08/20/19 03:24 BP 160/69 08/20/19 03:21 Pulse Ox 94 L 08/20/19 03:21 Intake & Output 08/19/19 08/20/19 08/20/19 18:59 06:59 18:59 Intake Total 850 1080.502 240 Output Total 350 Balance 850 730.502 240 Weight 96.9 kg Intake: Intake, IV Titration 250 200.502 Amount Heparin Sod,Pork in 0.45% 250 200.502 NaCl 25,000 unit In 0.45 % NaCl 1 250ml.bag @ 18 UNITS/KG/HR 17.064 mls/hr IV .[id number] [facility] Rx#: [id number] Oral 600 880 240 Output: Urine 350 Other: Voiding Method Urinal Urinal # Voids 1 2 - Exam GENERAL EXAM: Patient is alert and oriented and does not appear to be in any acute distress HEENT: Normocephalic. Normal reaction of pupils, equal size, normal range of extraocular motion. No erythema or exudates in the throat. NECK: No masses, no nuchal rigidity. CHEST: No chest wall deformity. LUNGS: Bilateral basal rales HEART: S1 and S2 normal. Systolic murmur in the aortic area ABDOMEN: No hepatosplenomegaly, normal bowel sounds, no guarding or rigidity. SKIN: No rashes CENTRAL NERVOUS SYSTEM: No focal deficits. EXTREMITIES: No cyanosis, clubbing or edema. - Labs CBC & Chem 7: 08/20/19 05:37 08/20/19 05:37 Labs: Abnormal Lab Results - Last 24 Hours (Table) 08/19/19 08/19/19 08/19/19 Range/Units 06:08 17:05 20:00 RBC (4.30-5.90) m/uL Hgb (13.0-17.5) gm/dL Hct (39.0-53.0) % RDW (11.5-15.5) % APTT (22.0-30.0) sec Chloride (98-107) mmol/L BUN (9-20) mg/dL Creatinine (0.66-1.25) mg/dL Glucose (74-99) mg/dL POC Glucose (mg/dL) 204 H (75-99) mg/dL Iron 40 L (65-175) ug/dL U Random Total Protein 96 H (<12) mg/dL 08/19/19 08/20/19 08/20/19 Range/Units 20:15 05:37 05:37 RBC 3.01 L (4.30-5.90) m/uL Hgb 8.8 L (13.0-17.5) gm/dL Hct 26.8 L (39.0-53.0) % RDW 16.5 H (11.5-15.5) % APTT (22.0-30.0) sec Chloride 110 H (98-107) mmol/L BUN 52 H (9-20) mg/dL Creatinine 3.67 H (0.66-1.25) mg/dL Glucose 135 H (74-99) mg/dL POC Glucose (mg/dL) 209 H (75-99) mg/dL Iron (65-175) ug/dL U Random Total Protein (<12) mg/dL 08/20/19 08/20/19 08/20/19 Range/Units 05:37 07:27 11:55 RBC (4.30-5.90) m/uL Hgb (13.0-17.5) gm/dL Hct (39.0-53.0) % RDW (11.5-15.5) % APTT 74.1 H (22.0-30.0) sec Chloride (98-107) mmol/L BUN (9-20) mg/dL Creatinine (0.66-1.25) mg/dL Glucose (74-99) mg/dL POC Glucose (mg/dL) 134 H 157 H (75-99) mg/dL Iron (65-175) ug/dL U Random Total Protein (<12) mg/dL Assessment and Plan Plan: (1) Acute combined systolic (congestive) and diastolic (congestive) heart failure Current Visit: Yes Status: Acute Code(s): I50.41 - ACUTE COMBINED SYSTOLIC AND DIASTOLIC (CONGESTIVE) HRT FAIL SNOMED Code(s): 806044739760037 (2) Severe aortic stenosis Current Visit: Yes Status: Acute Code(s): I35.0 - NONRHEUMATIC AORTIC (VALVE) STENOSIS SNOMED Code(s): 41494413 (3) Severe mitral regurgitation Current Visit: Yes Status: Acute Code(s): I34.0 - NONRHEUMATIC MITRAL (VALVE) INSUFFICIENCY SNOMED Code(s): 19053685 (4) History of coronary artery bypass graft Current Visit: Yes Status: Acute Code(s): Z95.1 - PRESENCE OF AORTOCORONARY BYPASS GRAFT SNOMED Code(s): 605258682 (5) Chronic renal failure Current Visit: Yes Status: Acute Code(s): N18.9 - CHRONIC KIDNEY DISEASE, UNSPECIFIED SNOMED Code(s): 22790423 Plan: Continue current medical therapy. Lasix has been discontinued by nephrology due to acute kidney injury. Continue monitoring I&O, daily weights, electrolyte and renal function daily. Patient now voices interest in having valvular surgery her e at [place] versus following up with his associate designer. Nurse practitioner note has been reviewed, I agree with the documented findings and plan of care. Patient has been seen and examined.
[2019-08-20 17:05] LABS: Glucose,Whole Blood 160 mg/dL (75-99)
[2019-08-20] MEDS: ATORVASTATIN 40 MG TAB PO SCH (19:43)
[2019-08-20] MEDS: CLOPIDOGREL 75 MG TAB PO SCH (19:43)
[2019-08-20 20:35] LABS: Glucose,Whole Blood 211 mg/dL (75-99)
[2019-08-20] MEDS: INSULIN DETEMIR (LEVEMIR) 100 UNIT/ML SYR SQ SCH (20:50)
[2019-08-21 03:02] LABS: Glucose,Whole Blood 174 mg/dL (75-99)
[2019-08-21] MEDS: GENTAMICIN 0.3% OPHTH DROPS 5 ML BTL BOTH EYES SCH ×6 (03:08→23:41)
[2019-08-21] MEDS: LEVOTHYROXINE 75 MCG TAB PO SCH (06:19)
[2019-08-21 07:07] LABS: Anisocytosis Slight; Basophils % (A) 0 %; Eosinophils # (A) 0.4 k/uL (0-0.7); Eosinophils % (A) 4 %; HCT 29.1 % (39.0-53.0); HGB 9.3 gm/dL (13.0-17.5); Lymphocytes # (A) 1.2 k/uL (1.0-4.8); Lymphocytes % (A) 13 %; MCH 28.2 pg (25.0-35.0); MCHC 31.9 g/dL (31.0-37.0); MCV 88.2 fL (80.0-100.0); Mean Platelet Volume 8.1; Monocytes # (A) 0.5 k/uL (0-1.0); Monocytes % (A) 6 %; Neutrophils # (A) 7.3 k/uL (1.3-7.7); Neutrophils % (A) 76 %; Platelet Count 215 k/uL (150-450); RDW 16.8 % (11.5-15.5); WBC 9.7 k/uL (3.8-10.6)
[2019-08-21 07:22] LABS: Glucose,Whole Blood 148 mg/dL (75-99)
[2019-08-21 07:41] LABS: Calcium 9.9 mg/dL (8.4-10.2); Potassium 5.3 mmol/L (3.5-5.1)
[2019-08-21] MEDS: IPRATROPIUM-ALBUTEROL 3 ML NEB INHALATION SCH ×3 (08:34→19:51)
[2019-08-21] MEDS: amLODIPine 5 MG TAB PO SCH ×2 (08:46→20:06)
[2019-08-21] MEDS: LINAGLIPTIN 5 MG TABLET PO SCH (08:46)
[2019-08-21] MEDS: MAGNESIUM OXIDE 400 MG TAB PO SCH (08:46)
[2019-08-21] MEDS: ISOSORBIDE MONONITRATE ER 30 MG TAB.ER.24H PO SCH (08:46)
[2019-08-21] MEDS: INSULIN ASPART (NovoLOG) 100 UNIT/ML VIAL SQ SCH (08:46)
[2019-08-21] MEDS: ASPIRIN 81 MG PO SCH (08:46)
[2019-08-21] MEDS: ACETAMINOPHEN TAB 325 MG TAB PO PRN ×2 (08:51→16:00)
[2019-08-21 12:27] LABS: Glucose,Whole Blood 125 mg/dL (75-99)
--- NOTE | 2019-08-21 15:15 | P.PN ---
Subjective Progress Note Date: 08/21/19 Principal diagnosis: 78-year-old gentleman with history of coronary artery disease and prior bypass surgery as well as subsequent stent placements, the exact details patient was unable to provide, his procedures were performed in [facility]. He also has a history of hypertension, diabetes, hyperlipidemia, hypothyroidism, history of kidney cancer for which the patient underwent a nephrectomy in the past, he also has history of subsequent to cancer, neither times to the patient re-require any chemotherapy. Patient follows with a mailing clerk in the [place] area, his exhauster engineer is also in [facility]. Patient presents to the hospital with symptoms of left knee discomfort as well as chest pain. He states that he was walking in his house, that a sharp pain behind his knee, felt like his leg was going to give out on him, he threw himself down onto the couch and shortly thereafter developed midsternal chest pressure with associated shortness of breath. He states that the symptoms lasted a few minutes and dissipated. The symptoms did return again shortly thereafter and for this reason the patient came to the emergency room for further evaluation and treatment. His chest x-ray on presentation here did not reveal any active cardiopulmonary disease. Initial EKG showed a normal sinus rhythm with incomplete right bundle branch block pattern and nonspecific ST-T wave changes. Blood pressure this morning 172/73 with a heart rate in the 70s, 96% on room air. White blood cell count 7.8, hemoglobin 8.8, platelet count 212. D-dimer 0.80. Sodium 140, potassium 5.1, BUN 54, creatinine 3.7. Magnesium 1.9. ALT 18, alk phos 132, troponin 0.018, 0.047. BNP 2480. 08/19/2019 Patient is seen and evaluated in room at bedside; patient has been taken off of BiPAP; he is resting comfortably in bed and denies any complaint of shortness of breath or chest pain; does complain of generalized body aches and requesting Tylenol Vital signs are stable with a temperature of 97.8, pulse 74, respiration 15 and blood pressure 134/61 with SpO2 of 95% on 2 L Laboratory review shows a white blood count of 7.7, hemoglobin of 9.2 and platelet count of 198; sodium of 142, potassium 5.1 with BUN of 51 and creatinine 3.39 which has trended up slightly from BUN of 51 and creatinine of 3.26 yesterday; VQ scan is done and is low probability for PE; patient is being cautiously diuresed by nephrology; renal ultrasound is done and is negative; echocardiogram shows severe LVH with left atrial dilatation and severe aortic stenosis with mild aortic regurg and severe mitral regurgitation Patient remains on IV heparin; await further recommendations from cardiology service 08/20/2019 Patient is seen and evaluated in room with family members at bedside; patient complaining of burning and itching of right eye along with bloody nose; patient reports that he has been stuffing napkins in the nostrils Epistaxis; patient remains on IV heparin per cardiology recommendations; we will try tranexamic acid to control bleeding; discontinue IV heparin if epistaxis continues Right conjunctivitis; Garamycin eyedrops 4 times a day to both eyes Acute on chronic renal failure; patient is positive for orthostatic hypotension; nephrology is following and recommending to hold Lasix because of orthostatic changes and increasing creatinine and monitor labs daily Acute exacerbation CHF; repeat chest x-ray is ordered since patient continues to have evidence of CHF and is unable to receive diuretics because of worsening renal failure and postural hypotension Multiple falls at home; we will order PT/OT once clinically stable 08/21/2019 Patient is lying in bed in no acute distress with family member at the bedside. Per nursing staff patient continues to complain of right eye burning this morning. Patient was recently started on gentamicin drops. 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 Patient denies any visual disturbances at this time. Patient denies any chest pain or palpitations at this time. Patient is afebrile. Patient denies any nausea or vomiting and is tolerating diet. Patient is currently off of BiPAP and on room air and tolerating well. Patient does get short of breath with exertion. Patient states that PT/OT was at the bedside today and walked with him for about 5 minutes with a cane. Patient is not having any nosebleeds at this time. Pat ient is currently off Lasix and nephrology is following. Multiple medical consultants are following and will continue to monitor closely. Objective - Vital Signs Vital signs: Vital Signs Temp 98.2 F 08/21/19 08:00 Pulse 92 08/21/19 13:16 Resp 19 08/21/19 04:00 BP 198/78 08/21/19 08:00 Pulse Ox 96 08/21/19 08:00 Intake & Output 08/20/19 08/21/19 08/21/19 18:59 06:59 18:59 Intake Total 718 960 Balance 718 960 Weight 96.2 kg Intake: Oral 718 960 Other: Voiding Method Urinal Urinal # Voids 3 - Exam Gen: This is a 78-year-old male lying in bed in no acute distress. Family is at the bedside. Vital signs are stable. Temp is 98.2F, pulse is 90, blood pressure is 134/61, oxygen saturation is 90% on room air. HEENT: Head is atraumatic, normocephalic. Pupils equal, round. Sclerae is anicteric. Right eye irritation and sensitivity to light NECK: Supple. No JVD. No lymphadenopathy. No thyromegaly. LUNGS: Diminished breath sounds with bilateral rails noted. No intercostal retractions. HEART: S1 and S2 are heard with systolic murmur ABDOMEN: Soft. Obese. Bowel sounds are present. No masses. No tenderness. EXTREMITIES: No pedal edema. No calf tenderness. NEUROLOGICAL: Patient is awake, alert and oriented x3. Cranial nerves 2 through 12 are grossly intact. - Labs CBC & Chem 7: 08/21/19 06:26 08/21/19 06:26 Labs: Abnormal Lab Results - Last 24 Hours (Table) 08/20/19 08/20/19 08/21/19 Range/Units 17:03 20:29 03:00 RBC (4.30-5.90) m/uL Hgb (13.0-17.5) gm/dL Hct (39.0-53.0) % RDW (11.5-15.5) % Potassium (3.5-5.1) mmol/L Chloride (98-107) mmol/L BUN (9-20) mg/dL Creatinine (0.66-1.25) mg/dL Glucose (74-99) mg/dL POC Glucose (mg/dL) 160 H 211 H 174 H (75-99) mg/dL 08/21/19 08/21/19 08/21/19 Range/Units 06:26 06:26 07:21 RBC 3.30 L (4.30-5.90) m/uL Hgb 9.3 L (13.0-17.5) gm/dL Hct 29.1 L (39.0-53.0) % RDW 16.8 H (11.5-15.5) % Potassium 5.3 H (3.5-5.1) mmol/L Chloride 108 H (98-107) mmol/L BUN 48 H (9-20) mg/dL Creatinine 3.49 H (0.66-1.25) mg/dL Glucose 133 H (74-99) mg/dL POC Glucose (mg/dL) 148 H (75-99) mg/dL 08/21/19 Range/Units 12:26 RBC (4.30-5.90) m/uL Hgb (13.0-17.5) gm/dL Hct (39.0-53.0) % RDW (11.5-15.5) % Potassium (3.5-5.1) mmol/L Chloride (98-107) mmol/L BUN (9-20) mg/dL Creatinine (0.66-1.25) mg/dL Glucose (74-99) mg/dL POC Glucose (mg/dL) 125 H (75-99) mg/dL Assessment and Plan Assessment: 1. Acute hypoxic respiratory failure; possibly secondary to CHF -Patient is currently off the BiPAP and on room air: Pulmonary and cardiology are following. 2. Acute exacerbation CHF with acute combined systolic and diastolic heart failure - Trend troponin every 43; monitor EKG; cardiology is following - monitor strict ALEXEI's and daily weights; continue with low-salt and fluid restricted diet 3. Chest pain associated with shortness of breath; possible ACS - Troponin came back elevated and trending up from 0.0.8 to 0.047 - Cardiology is following and recommending to continue with aspirin 81 g daily, Lipitor, Plavix - Patient is started on low-dose beta blockers per cardiology recommendations - Plan to hold off on YANETH inhibitor therapy because of renal function 4. Acute on chronic kidney disease; patient has history of renal carcinoma with history of right nephrectomy; BUN/creatinine of 48/3.5; we will monitor strict ALEXEI's, daily weights, renal function and electrolytes; avoid nephrotoxins and hypotension; nephrology is following 5. Elevated d-dimer; pulmonary is following; VQ scan was negative 6. CAD/prior bypass surgery and stent placement 7. Diabetes mellitus; Levemir 40 mg subcu daily at bedtime; monitor Accu-Cheks every before meals and at bedtime with insulin sliding scale; continue with Tradjenta mg daily 8. Hypertension; amlodipine 5 mg by mouth twice a day 9. Hyperlipidemia; continue with home dose of Lipitor at 40 mg by mouth daily at bedtime 10. Hypothyroidism; clinically euthyroid on home dose of Synthroid 11. DVT prophylaxis; systemic anticoagulation with heparin CODE STATUS; full code Recommendations and discussion: Recommend to continue current medications, management, and symptomatically treatment. Multiple medical consults are following at this time. Will continue to monitor closely. Patient is currently off the BiPAP and tolerating well. VQ scan was negative. Patient normally sees a exhauster engineer that he has been following in [place] but has discussed with and will discuss with cardiology about possible surgical intervention here at [facility]. Due to multiple complex medical issues prognosis is guarded. Further recommendations to follow.
--- NOTE | 2019-08-21 16:00 | PN ---
PROGRESS NOTE Patient is seen for followup for chronic kidney disease and acute kidney injury. He was volume overloaded on initial admission. Renal function is slightly better today as compared to yesterday with creatinine down to 3.4 from 3.6. The patient states he does follow up with outside sales consultant in the [facility] as he lives out of town. PHYSICAL EXAMINATION: This morning, blood pressure is 134/61, heart rate 90 per minute. He is afebrile. Examination of the heart S1, S2. Examination of the lungs, bilateral breath sounds are heard. Abdomen is soft, nontender. Examination lower extremities shows no evidence of edema. [facility] exam grossly intact. LABS: Show sodium 141, potassium 5.3, BUN 48, serum creatinine 2.49. ASSESSMENT: 1. Acute kidney injury, mostly cardiorenal, currently improved. 2. 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 3. History of cancer of the kidney status post right nephrectomy. 4. Fluid overload, currently improved. PLAN: Okay to discharge patient. Follow up as outpatient with primary outside sales consultant and repeat labs as outpatient. Maintain patient on low-potassium diet. He will need to resume diuretics in a few days, which will also help with the hyperkalemia. MMODL / IJN: [id number] /
--- NOTE | 2019-08-21 16:58 | P.PN ---
Subjective Progress Note Date: 08/21/19 Principal diagnosis: Shortness of breath On 08/21/2017 patient seen in follow-up on selective care unit. He states his breathing is improving, room air pulse ox is 90%, patient is afebrile, hemodynamically stable, no complaints of chest pain. Patient has been diuresed, and diuretics are currently on hold in view of patient's worsening renal function, nephrology is following, patient reports some clinical improvement, and has been improvement noted in his chest x-ray as well, he is able to lie flat in bed. He has had no fever or chills, he has minimal to no lower extrem ity edema. Patient had a echocardiogram which showed left ventricular systolic function within the low-normal range between 50 and 55% and severe aortic stenosis, with the peak/mean gradient across the aortic valve of 66 mmHg/41 mmHg, in addition to a severe mitral regurgitation, moderately severe pulmonary hypertension with PA systolic of 63 mmHg and mild tricuspid regurgitation. Cardiology is following, and patient needs further evaluation to determine whether he is a candidate for aortic valve replacement and mitral valve repair, and apparently requested to be transferred to his own independent driver in [facility] however patient was not accepted because of a lateral transfer. Today's la bs have been reviewed, showing white blood cell count of 9.7, hemoglobin of 9.3, sodium of 141, potassium 5.3, chloride is 108, BUN is 48 and creatinine is 3.49 Objective - Vital Signs Vital signs: Vital Signs Temp 98.2 F 08/21/19 08:00 Pulse 92 08/21/19 13:16 Resp 19 08/21/19 04:00 BP 134/61 08/21/19 12:00 Pulse Ox 90 L 08/21/19 12:00 Intake & Output 08/20/19 08/21/19 08/21/19 18:59 06:59 18:59 Intake Total 718 960 526 Balance 718 960 526 Weight 96.2 kg Intake: Oral 718 960 526 Other: Voiding Method Urinal Urinal # Voids 3 - Exam GENERAL EXAM: Alert, pleasant, 78-year-old white male, on room air, comfortable in no apparent distress. HEAD: Normocephalic/atraumatic. EYES: Normal reaction of pupils, equal size. Conjunctiva pink, sclera white. NOSE: Clear with pink turbinates. THROAT: No erythema or exudates. NECK: No masses, no JVD, no thyroid enlargement, no adenopathy. CHEST: No chest wall deformity. Symmetrical expansion. LUNGS: Equal air entry with minimal crackles, but no wheeze, rhonchi or dullness. CVS: Regular rate and rhythm, normal S1 and S2, no gallops, no murmurs, no rubs ABDOMEN: Soft, nontender. No hepatosplenomegaly, normal bowel sounds, no guarding or rigidity. EXTREMITIES: No clubbing, no edema, no cyanosis, 2+ pulses and upper and lower extremities. MUSCULOSKELETAL: Muscle strength and tone normal. SPINE: No scoliosis or deformity SKIN: No rashes CENTRAL NERVOUS SYSTEM: Alert and oriented -3. No focal deficits, tone is normal in all 4 extremities. PSYCHIATRIC: Alert and oriented -3. Appropriate affect. Intact judgment and insight. - Labs CBC & Chem 7: 08/21/19 06:26 08/21/19 06:26 Labs: Abnormal Lab Results - Last 24 Hours (Table) 08/20/19 08/20/19 08/21/19 Range/Units 17:03 20:29 03:00 RBC (4.30-5.90) m/uL Hgb (13.0-17.5) gm/dL Hct (39.0-53.0) % RDW (11.5-15.5) % Potassium (3.5-5.1) mmol/L Chloride (98-107) mmol/L BUN (9-20) mg/dL Creatinine (0.66-1.25) mg/dL Glucose (74-99) mg/dL POC Glucose (mg/dL) 160 H 211 H 174 H (75-99) mg/dL 08/21/19 08/21/19 08/21/19 Range/Units 06:26 06:26 07:21 RBC 3.30 L (4.30-5.90) m/uL Hgb 9.3 L (13.0-17.5) gm/dL Hct 29.1 L (39.0-53.0) % RDW 16.8 H (11.5-15.5) % Potassium 5.3 H (3.5-5.1) mmol/L Chloride 108 H (98-107) mmol/L BUN 48 H (9-20) mg/dL Creatinine 3.49 H (0.66-1.25) mg/dL Glucose 133 H (74-99) mg/dL POC Glucose (mg/dL) 148 H (75-99) mg/dL 08/21/19 Range/Units 12:26 RBC (4.30-5.90) m/uL Hgb (13.0-17.5) gm/dL Hct (39.0-53.0) % RDW (11.5-15.5) % Potassium (3.5-5.1) mmol/L Chloride (98-107) mmol/L BUN (9-20) mg/dL Creatinine (0.66-1.25) mg/dL Glucose (74-99) mg/dL POC Glucose (mg/dL) 125 H (75-99) mg/dL Assessment and Plan Plan: Assessment: #1. Shortness of breath secondary to acute exacerbation of congestive heart failure with mildly impaired left ventricle systolic function and EF of 50-55% #2. History of mild intermittent bronchial asthma, not active at this time #3. Coronary artery disease with history of previous bypass grafting #4. Acute kidney injury, mostly cardiorenal #5. Chronic kidney disease stage III to IV #6. History of cancer status post right nephrectomy #7. Pulmonary edema, currently improved #8. Severe aortic stenosis, severe mitral regurgitation, and patient will need further evaluation for possibility of surgical intervention #9. Moderately severe pulmonary hypertension with PA systolic of 63 mmHg #10. Diabetes mellitus #11. Hyperlipidemia #12. History of hypertension Plan: Patient is breathing easier, his diuretics have been on hold in view of his worsening renal function, but clinically patient is stable, did not require BiP AP support, is on room air, he is tolerating ambulation although does report exertional dyspnea, in no acute distress. No cough or congestion, no complaints of chest pain, he is being followed by cardiology and being evaluated for possibility of surgical intervention in view of his significant valvular disease including severe aortic stenosis, severe mitral regurgitation. I performed a history & physical examination of the patient and discussed their management with my nurse practitioner, Precious Cueva. I reviewed the nurse practitioner's note and agree with the documented findings and plan of care. Lung sounds are positive for minimal crackles at the bases. The findings and the impression was discussed with the patient. I attest to the documentation by the nurse practitioner. Time with Patient: Less than 30
[2019-08-21 17:32] LABS: Glucose,Whole Blood 258 mg/dL (75-99)
--- NOTE | 2019-08-21 18:07 | P.PN ---
Subjective Progress Note Date: 08/21/19 This 78-year-old gentleman with history of for chronic renal failure, aortic stenosis and also mitral regurgitation was admitted to the hospital with chest pain and shortness of breath. Patient was found to be in congestive heart failure. He was treated with IV Lasix. He is feeling much better today. He is less short of breath. Lungs show a few rales at bases. His BUN/creatinine are still high. No complaints of chest pain. We'll continue current medical therapy. Patient needs further evaluation to see physical candidate for aortic valve replacement and mitral valve repair. Initially patient wanted to go to his own beef lugger in [place]. We titrate also patient to the hospital but could not transfer him because of lateral transfer. We'll try to maximize medical therapy and when physically stable will discharge home to follow with his own beef lugger. 08/21/2019: This patient seemed to be relatively stable. Denies any chest pain or shortness of breath. His renal function is stable. He is off heparin. His lungs show a few rales. Heart shows systolic murmur. At this point patient is critically stable and we recommend that patient could be discharged home. Patient will have follow-up with his primary beef lugger for further evaluation for possible valvular replacement and repair. Prognosis is guarded Objective - Vital Signs Vital signs: Vital Signs Temp 98.2 F 08/21/19 08:00 Pulse 92 08/21/19 13:16 Resp 19 08/21/19 04:00 BP 134/61 08/21/19 12:00 Pulse Ox 90 L 08/21/19 12:00 Intake & Output 08/20/19 08/21/19 08/21/19 18:59 06:59 18:59 Intake Total 718 960 526 Balance 718 960 526 Weight 96.2 kg Intake: Oral 718 960 526 Other: Voiding Method Urinal Urinal # Voids 3 - Exam GENERAL EXAM: Patient is alert and oriented and doesn't appear to be in any acute distress HEENT: Normocephalic. Normal reaction of pupils, equal size, normal range of extraocular motion. No erythema or exudates in the throat. NECK: No masses, no nuchal rigidity. CHEST: No chest wall deformity. LUNGS: Bilateral basal rales HEART: S1 and S2 normal. Systolic murmur in the aortic area ABDOMEN: No hepatosplenomegaly, normal bowel sounds, no guarding or rigidity. SKIN: No rashes CENTRAL NERVOUS SYSTEM: No focal deficits. EXTREMITIES: No cyanosis, clubbing or edema. - Labs CBC & Chem 7: 08/21/19 06:26 08/21/19 06:26 Labs: Abnormal Lab Results - Last 24 Hours (Table) 08/20/19 08/21/19 08/21/19 Range/Units 20:29 03:00 06:26 RBC 3.30 L (4.30-5.90) m/uL Hgb 9.3 L (13.0-17.5) gm/dL Hct 29.1 L (39.0-53.0) % RDW 16.8 H (11.5-15.5) % Potassium (3.5-5.1) mmol/L Chloride (98-107) mmol/L BUN (9-20) mg/dL Creatinine (0.66-1.25) mg/dL Glucose (74-99) mg/dL POC Glucose (mg/dL) 211 H 174 H (75-99) mg/dL 08/21/19 08/21/19 08/21/19 Range/Units 06:26 07:21 12:26 RBC (4.30-5.90) m/uL Hgb (13.0-17.5) gm/dL Hct (39.0-53.0) % RDW (11.5-15.5) % Potassium 5.3 H (3.5-5.1) mmol/L Chloride 108 H (98-107) mmol/L BUN 48 H (9-20) mg/dL Creatinine 3.49 H (0.66-1.25) mg/dL Glucose 133 H (74-99) mg/dL POC Glucose (mg/dL) 148 H 125 H (75-99) mg/dL 08/21/19 Range/Units 17:28 RBC (4.30-5.90) m/uL Hgb (13.0-17.5) gm/dL Hct (39.0-53.0) % RDW (11.5-15.5) % Potassium (3.5-5.1) mmol/L Chloride (98-107) mmol/L BUN (9-20) mg/dL Creatinine (0.66-1.25) mg/dL Glucose (74-99) mg/dL POC Glucose (mg/dL) 258 H (75-99) mg/dL Assessment and Plan (1) Acute combined systolic (congestive) and diastolic (congestive) heart failure Current Visit: Yes Status: Acute Code(s): I50.41 - ACUTE COMBINED SYSTOLIC AND DIASTOLIC (CONGESTIVE) HRT FAIL SNOMED Code(s): 208770664618822 (2) Severe aortic stenosis Current Visit: Yes Status: Acute Code(s): I35.0 - NONRHEUMATIC AORTIC (VALVE) STENOSIS SNOMED Code(s): 05777679 (3) Severe mitral regurgitation Current Visit: Yes Status: Acute Code(s): I34.0 - NONRHEUMATIC MITRAL (VALVE) INSUFFICIENCY SNOMED Code(s): 24331495 (4) History of coronary artery bypass graft Current Visit: Yes Status: Acute Code(s): Z95.1 - PRESENCE OF AORTOCORONARY BYPASS GRAFT SNOMED Code(s): 045375895 (5) Chronic renal failure Current Visit: Yes Status: Acute Code(s): N18.9 - CHRONIC KIDNEY DISEASE, UNSPECIFIED SNOMED Code(s): 84868089 Plan: Patient is relatively stable over the last 24-48 hours. His renal function is stabilized. From Cardec standpoint patient could be discharged home. Patient prefers to have follow-up with his own primary beef lugger for further intervention regarding his valvular abnormalities
[2019-08-21] MEDS: CLOPIDOGREL 75 MG TAB PO SCH (20:06)
[2019-08-21] MEDS: ATORVASTATIN 40 MG TAB PO SCH (20:06)
[2019-08-21] MEDS: INSULIN DETEMIR (LEVEMIR) 100 UNIT/ML SYR SQ SCH (20:48)
[2019-08-21 20:54] LABS: Glucose,Whole Blood 242 mg/dL (75-99)
[2019-08-22] MEDS: ACETAMINOPHEN TAB 325 MG TAB PO PRN (04:30)
[2019-08-22] MEDS: GENTAMICIN 0.3% OPHTH DROPS 5 ML BTL BOTH EYES SCH ×4 (04:34→13:36)
[2019-08-22 06:38] LABS: Glucose,Whole Blood 109 mg/dL (75-99)
[2019-08-22] MEDS: INSULIN ASPART (NovoLOG) 100 UNIT/ML VIAL SQ SCH (07:08)
[2019-08-22] MEDS: LEVOTHYROXINE 75 MCG TAB PO SCH (07:08)
[2019-08-22] MEDS: MAGNESIUM OXIDE 400 MG TAB PO SCH (08:16)
[2019-08-22] MEDS: ISOSORBIDE MONONITRATE ER 30 MG TAB.ER.24H PO SCH (08:16)
[2019-08-22] MEDS: amLODIPine 5 MG TAB PO SCH (08:16)
[2019-08-22] MEDS: LINAGLIPTIN 5 MG TABLET PO SCH (08:16)
[2019-08-22] MEDS: ASPIRIN 81 MG PO SCH (08:16)
[2019-08-22 08:19] VITALS: RESP 20
[2019-08-22] MEDS: IPRATROPIUM-ALBUTEROL 3 ML NEB INHALATION SCH ×2 (08:46→12:47)
[2019-08-22 10:43] LABS: Calcium 9.9 mg/dL (8.4-10.2); Potassium 4.9 mmol/L (3.5-5.1)
[2019-08-22 12:03] VITALS: BP 146/62; PULSE 90; TEMP 98.2
[2019-08-22 12:42] LABS: Glucose,Whole Blood 104 mg/dL (75-99)
--- NOTE | 2019-08-22 16:53 | P.DS ---
Providers Date of admission: 08/18/19 00:29 Expected date of discharge: 08/22/19 Attending physician: Lia Sanchez Consults: 08/18/19 00:27 Consult Physician Routine Consulting Provider: Wilfred Saini Consult Reason/Comments: chest pain Do you want consulting provider notified?: Yes Consult Physician Urgent Consulting Provider: Winston Briones Consult Reason/Comments: andres, history of nephrectomy Do you want consulting provider notified?: Yes 08/18/19 11:02 Consult Physician Urgent Consulting Provider: Francois Luz Consult Reason/Comments: SAMMY Do you want consulting provider notified?: Yes Primary care physician: Stated None Hospital Course: Final diagnosis Acute hypoxic respiratory failure: Possibly secondary to CHF Acute exacerbation 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 Total time taken is 35 minutes. History of present illness This is a 78-year-old male who was recently admitted with chest pain and shortness of breath and was being closely monitored. Multiple medical consultations were following. Patient has a sugar house supervisor in the [facility] and would like to continue treatment with them. Patient will follow-up with his sugar house supervisor upon discharge. During hospitalization patient was on a BiPAP for a short period for the shortness of breath and underwent a VQ scan for possible pulmonary embolism which was negative. Patient continues to have an elevated creatinine and nephrology was following. Renal ultrasound was done and was negative. Per nephrology recommendations during hospitalization patient will follow-up with his cordwood cutter upon discharge. Patient underwent an echo which showed severe LVH with left atrial dilatation and severe aortic stenosis with mild aortic regurgitation and severe mitral regurgitation. As mentioned previously patient will follow up with cardiology that he normally sees upon discharge. Patient is refusing any form of rehab upon discharge and states that he is able to walk with a cane with no issues. Patient lives with his at home. Currently patient's condition is stable with much improvement and is ready for discharge today. Guarded prognosis. On exam vital signs are stable. Temp is 98.2F, pulse is 90, respirations are 20, blood pressure is 146/62, oxygen saturation is 92% on room air. S2 are muffled. Respiratory system shows diminished breath sounds at the bases with some bilateral scattered crackles noted. Abdomen is soft, obese, nontender. Nervous system shows no focal deficits and gait is steady. Please refer to medication reconciliation sheet for a list of medications. Patient Condition at Discharge: Fair Plan - Discharge Summary Discharge Rx Participant: Yes New Discharge Prescriptions: New Gentamicin 0.3% Ophth Soln [Garamycin 0.3% Ophth Soln] 1 drops BOTH EYES Q4HR 7 Days #15 ml Isosorbide Mononitrate ER [Imdur] 30 mg PO DAILY 30 Days #30 tab.er.24h Magnesium Oxide [Mag-Ox] 400 mg PO DAILY 30 Days #30 tab Continue Primidone [Mysoline] 50 mg PO QID Atorvastatin [Lipitor] 40 mg PO HS Amitriptyline HCl [Elavil] 20 mg PO DAILY Omeprazole [PriLOSEC] 20 mg PO AC-BRKFST Insulin Detemir [Levemir Flextouch] 40 units SQ HS Insulin Aspart [NovoLOG Flexpen] 6 units SQ AC-BRKFST Calcitriol [Rocaltrol] 0.25 mcg PO DAILY Aspirin EC [Ecotrin Low Dose] 81 mg PO DAILY Calcium Carbonate [Calcium] 600 mg PO DAILY Biotin 5 mg PO DAILY sitaGLIPtin [Januvia] 100 mg PO DAILY Levothyroxine Sodium [Synthroid] 75 mcg PO DAILY Donepezil HCl [Aricept] 5 mg PO HS Clopidogrel [Plavix] 75 mg PO HS amLODIPine [Norvasc] 5 mg PO BID Wheat Dextrin [Benefiber] 1 packet PO DAILY Albuterol Sulfate [Proair Hfa] 1 - 2 puff INHALATION RT-QID PRN PRN Reason: Shortness Of Breath Discontinued Magnesium Oxide [Mag-Ox] 500 mg PO DAILY Discharge Medication List Amitriptyline HCl [Elavil] 20 mg PO DAILY 08/14/16 [History] Aspirin EC [Ecotrin Low Dose] 81 mg PO DAILY 08/14/16 [History] Atorvastatin [Lipitor] 40 mg PO HS 08/14/16 [History] Calcitriol [Rocaltrol] 0.25 mcg PO DAILY 08/14/16 [History] Calcium Carbonate [Calcium] 600 mg PO DAILY 08/14/16 [History] Insulin Aspart [NovoLOG Flexpen] 6 units SQ -KFST 08/14/16 [History] Insulin Detemir [Levemir Flextouch] 40 units SQ HS 08/14/16 [History] Omeprazole [PriLOSEC] 20 mg PO AC-BRKFST 08/14/16 [History] Primidone [Mysoline] 50 mg PO QID 08/14/16 [History] Albuterol Sulfate [Proair Hfa] 1 - 2 puff INHALATION RT-QID PRN 08/17/19 [History] Biotin 5 mg PO DAILY 08/17/19 [History] Clopidogrel [Plavix] 75 mg PO HS 08/17/19 [History] Donepezil HCl [Aricept] 5 mg PO HS 08/17/19 [History] Levothyroxine Sodium [Synthroid] 75 mcg PO DAILY 08/17/19 [History] Wheat Dextrin [Benefiber] 1 packet PO DAILY 08/17/19 [History] amLODIPine [Norvasc] 5 mg PO BID 08/17/19 [History] sitaGLIPtin [Januvia] 100 mg PO DAILY 08/17/19 [History] Gentamicin 0.3% Ophth Soln [Garamycin 0.3% Ophth Soln] 1 drops BOTH EYES Q4HR 7 Days #15 ml 08/22/19 [Rx] Isosorbide Mononitrate ER [Imdur] 30 mg PO DAILY 30 Days #30 tab.er.24h 08/22/19 [Rx] Magnesium Oxide [Mag-Ox] 400 mg PO DAILY 30 Days #30 tab 08/22/19 [Rx] Follow up Appointment(s)/Referral(s): Catracho Wang MD [REFERRING] - 08/29/19 2:20 pm (Wednesday) Ambulatory/Diagnostic Orders: Basic Metabolic Panel [LAB.AMB] Time Frame: 2 Days, Location: None Selected Patient Instructions/Handouts: Heart Failure (DC), Aortic Stenosis (DC) Activity/Diet/Wound Care/Special Instructions: Please find new primary care physician and follow up within the next week. Dr. Allan Renae follow up- September 06 at 1:30 (Wednesday) Activity Limited until follow-up Follow-up with primary care provider this week that is in the [facility] Follow-up with cardiology this week as discussed Follow-up with cordwood cutter in the [facility] as discussed Continue current diet of low potassium diet Repeat labs in 2-3 days Discharge Disposition: HOME SELF-CARE
--- NOTE | 2019-08-22 20:26 | PN ---
PROGRESS NOTE Patient is seen for followup for acute kidney injury and chronic kidney disease. He will be going home today. He denies any significant complaints. On examination, blood pressure is 146/62, heart rate 90 per minute. Patient is afebrile. EXAMINATION OF THE HEART: S1 and S2. EXAMINATION OF LUNGS: Bilateral breath sounds are heard. ABDOMEN: Soft, non-tender. Examination of lower extremities shows no significant edema. SECURITY TRAINER exam is grossly intact. Labs show sodium 141, potassium 4.9, serum creatinine 3.45 mg/dL. ASSESSMENT: 1. Chronic kidney disease, stage IV, with previous creatinine about 2.89, etiology diabetic nephropathy and solitary kidney. Patient follows with a bleach machine operator in the [facility] where he resides. 2. History of renal cell cancer, status post right nephrectomy. 3. Acute kidney injury, mainly cardiorenal, currently improved. PLAN: Patient can be discharged. Follow up as outpatient with primary bleach machine operator in the next one week. MMODL / IJN: [id number] /
== END 2019-08-22 13:46 | disposition home or self-care (01) | DRG 291 ==
LOC: EC 22:06 → 3SCARD 08-18 00:29
PROVIDERS: ADMIT Hospitalist; ATTEND Hospitalist
PROC: 5A09557 Assistance with Respiratory Ventilation, Greater than 96 Consecutive Hours, Continuous Positive Airway Pressure (ICD-10-PCS; principal; 2019-08-18)
DX: I13.2 Hypertensive heart and chronic kidney disease with heart failure and with stage 5 chronic kidney disease, or end stage renal disease (principal); I50.41 Acute combined systolic (congestive) and diastolic (congestive) heart failure; J96.01 Acute respiratory failure with hypoxia; N18.4 Chronic kidney disease, stage 4 (severe); N17.9 Acute kidney failure, unspecified; E11.22 Type 2 diabetes mellitus with diabetic chronic kidney disease; E87.5 Hyperkalemia; I08.3 Combined rheumatic disorders of mitral, aortic and tricuspid valves; E83.39 Other disorders of phosphorus metabolism; D63.1 Anemia in chronic kidney disease; I27.20 Pulmonary hypertension, unspecified; I45.10 Unspecified right bundle-branch block; R04.0 Epistaxis; J45.909 Unspecified asthma, uncomplicated; I25.10 Atherosclerotic heart disease of native coronary artery without angina pectoris; E78.5 Hyperlipidemia, unspecified; E03.9 Hypothyroidism, unspecified; I95.1 Orthostatic hypotension; K21.9 Gastro-esophageal reflux disease without esophagitis; M19.90 Unspecified osteoarthritis, unspecified site; R29.6 Repeated falls; H10.9 Unspecified conjunctivitis; M25.562 Pain in left knee; H26.9 Unspecified cataract; E66.9 Obesity, unspecified; Z68.28 Body mass index [BMI] 28.0-28.9, adult; Z79.82 Long term (current) use of aspirin; Z79.02 Long term (current) use of antithrombotics/antiplatelets; Z79.890 Hormone replacement therapy; Z79.4 Long term (current) use of insulin; Z79.899 Other long term (current) drug therapy; Z95.1 Presence of aortocoronary bypass graft; Z90.5 Acquired absence of kidney; Z85.528 Personal history of other malignant neoplasm of kidney; Z95.5 Presence of coronary angioplasty implant and graft; Z87.891 Personal history of nicotine dependence; Z98.890 Other specified postprocedural states; Z88.0 Allergy status to penicillin; Z91.018 Allergy to other foods; Z82.5 Family history of asthma and other chronic lower respiratory diseases
CPT/HCPCS: 36415; 71045; 71046; 76770; 78582; 80048; 80053; 80061; 82570; 83540; 83550; 83735; 83880; 84156; 84484; 85025; 85379; 85610; 85730; 93306; 94640; 94660; 94760; 96365; 96376; 99285

== ENCOUNTER 2020-10-06 04:06 | Inpatient (IN) | payer MEDICARE, BC ==
[2020-10-06] MEDS ORDERED: ACETAMINOPHEN TAB 325 MG TAB PO STA (05:10)
[2020-10-06 05:34] LABS: Basophils # (A) 0.2 k/uL (0-0.2); Basophils % (A) 2 %; Eosinophils # (A) 0.3 k/uL (0-0.7); Eosinophils % (A) 3 %; HCT 39.9 % (39.0-53.0); HGB 12.7 gm/dL (13.0-17.5); Hypochromasia Slight; Lymphocytes # (A) 0.5 k/uL (1.0-4.8); Lymphocytes % (A) 5 %; MCH 31.1 pg (25.0-35.0); MCHC 31.7 g/dL (31.0-37.0); MCV 97.9 fL (80.0-100.0); Mean Platelet Volume 8.8; Monocytes # (A) 0.6 k/uL (0-1.0); Monocytes % (A) 6 %; Neutrophils % (A) 83 %; Platelet Count 168 k/uL (150-450); RBC 4.08 m/uL (4.30-5.90); RDW 15.1 % (11.5-15.5); WBC 9.6 k/uL (3.8-10.6)
[2020-10-06 05:44] LABS: Albumin 4.3 g/dL (3.5-5.0); Calcium 10.1 mg/dL (8.4-10.2); Potassium 5.3 mmol/L (3.5-5.1); Total Bilirubin 0.5 mg/dL (0.2-1.3); Total Protein 7.2 g/dL (6.3-8.2)
--- NOTE | 2020-10-06 05:50 | XR ---
EXAM: XR Chest, 1 View CLINICAL HISTORY: Fever TECHNIQUE: Frontal view of the chest. COMPARISON: August 20, 2019. FINDINGS: Lungs: Unremarkable. No acute infiltration, atelectasis or mass. Pleural space: Unremarkable. No pneumothorax or pleural fluid. Heart: Unremarkable. No cardiomegaly. Mediastinum: Unremarkable. Bones/joints: No acute findings. Previous sternotomy. IMPRESSION: No evidence of acute or active process in the chest.
[2020-10-06] MEDS ORDERED: NALOXONE 0.4 MG/ML 1 ML VIAL IV PRN (06:25)
[2020-10-06] MEDS ORDERED: ACETAMINOPHEN TAB 325 MG TAB PO PRN (06:25)
[2020-10-06 06:29] LABS: Appearance,Urine Clear (Clear); Bilirubin,Urine Negative (Negative); Blood,Urine Trace (Negative); Color,Urine Light Yellow; Glucose,Urine (UA) 4+ (Negative); Ketones,Urine Negative (Negative); Leukocyte Esterase,Urine Negative (Negative); Nitrite,Urine Negative (Negative); PH, Urine 6.5 (5.0-8.0); Protein,Urine 2+ (Negative); RBC,Urine <1 /hpf (0-5); Specific Gravity,Urine 1.014 (1.001-1.035); Urobilinogen,Urine <2.0 mg/dL (<2.0); WBC,Urine <1 /hpf (0-5)
[2020-10-06] MEDS ORDERED: dexAMETHasone 2 MG TAB PO STA (06:30)
--- NOTE | 2020-10-06 07:15 | ED ---
Fall HPI - General Chief Complaint: Fall Stated Complaint: Weakness Time Seen by Provider: 10/06/20 04:32 Source: patient, EMS Mode of arrival: EMS - Related Data Home Medications Medication Instructions Recorded Confirmed Amitriptyline HCl [Elavil] 20 mg PO DAILY 08/14/16 08/17/19 Aspirin EC [Ecotrin Low Dose] 81 mg PO DAILY 08/14/16 08/17/19 Atorvastatin [Lipitor] 40 mg PO HS 08/14/16 08/17/19 Calcium Carbonate [Calcium] 600 mg PO DAILY 08/14/16 08/17/19 Insulin Aspart [NovoLOG Flexpen] 6 units SQ AC-BRKFST 08/14/16 08/17/19 Insulin Detemir [Levemir Flextouch] 40 units SQ HS 08/14/16 08/17/19 Omeprazole [PriLOSEC] 20 mg PO AC-BRKFST 08/14/16 08/17/19 Primidone [Mysoline] 50 mg PO QID 08/14/16 08/17/19 calcitrioL [Rocaltrol] 0.25 mcg PO DAILY 08/14/16 08/17/19 Albuterol Sulfate [Proair Hfa] 1 - 2 puff INHALATION RT-QID PRN 08/17/19 08/17/19 Biotin 5 mg PO DAILY 08/17/19 08/17/19 Clopidogrel [Plavix] 75 mg PO HS 08/17/19 08/17/19 Donepezil HCl [Aricept] 5 mg PO HS 08/17/19 08/17/19 Levothyroxine Sodium [Synthroid] 75 mcg PO DAILY 08/17/19 08/17/19 Wheat Dextrin [Benefiber] 1 packet PO DAILY 08/17/19 08/17/19 amLODIPine [Norvasc] 5 mg PO BID 08/17/19 08/17/19 sitaGLIPtin [Januvia] 100 mg PO DAILY 08/17/19 08/17/19 Previous Rx's Medication Instructions Recorded Gentamicin 0.3% Ophth Soln 1 drops BOTH EYES Q4HR 7 Days #15 08/22/19 [Garamycin 0.3% Ophth Soln] ml Isosorbide Mononitrate ER [Imdur] 30 mg PO DAILY 30 Days #30 08/22/19 tab.er.24h Magnesium Oxide [Mag-Ox] 400 mg PO DAILY 30 Days #30 tab 08/22/19 Allergies Allergy/AdvReac Type Severity Reaction Status Date / Time Penicillins Allergy Unknown Verified 08/17/19 23:06 Xavi Cheese AdvReac Nausea & Uncoded 08/17/19 23:06 Vomiting & Diarrhea Review of Systems ROS Statement: Those systems with pertinent positive or pertinent negative responses have been documented in the HPI. ROS Other: All systems not noted in ROS Statement are negative. Past Medical History Past Medical History: Asthma, Coronary Artery Disease (CAD), Cancer, Diabetes Mellitus, GERD/Reflux, Hyperlipidemia, Hypertension, Osteoarthritis (OA), Renal Disease, Thyroid Disorder Additional Past Medical History / Comment(s): kidney cancer (right Nephrectomy) History of Any Multi-Drug Resistant Organisms: None Reported Past Surgical History: Coronary Bypass/CABG, Heart Catheterization With Stent, Hernia Repair, Orthopedic Surgery Additional Past Surgical History / Comment(s): kidney removed from right side Past Anesthesia/Blood Transfusion Reactions: No Reported Reaction Date of Last Stent Placement:: 2011 Past Psychological History: No Psychological Hx Reported Smoking Status: Former smoker Past Alcohol Use History: Rare Past Drug Use History: None Reported - Past Family History Father Family Medical History: Unable to Obtain Mother Family Medical History: Asthma General Exam Limitations: no limitations Course Vital Signs 10/06/20 10/06/20 04:14 05:39 Temperature 99.7 F H Pulse Rate 105 H 100 Respiratory 18 20 Rate Blood Pressure 182/70 184/76 O2 Sat by Pulse 92 L 91 L Oximetry Medical Decision Making - Lab Data Result diagrams: 10/06/20 05:17 10/06/20 05:17 Lab Results 10/06/20 10/06/20 10/06/20 Range/Units 05:17 05:17 05:17 WBC (3.8-10.6) k/uL RBC (4.30-5.90) m/uL Hgb (13.0-17.5) gm/dL Hct (39.0-53.0) % MCV (80.0-100.0) fL MCH (25.0-35.0) pg MCHC (31.0-37.0) g/dL RDW (11.5-15.5) % Plt Count (150-450) k/uL Neutrophils % % Lymphocytes % % Monocytes % % Eosinophils % % Basophils % % Neutrophils # (1.3-7.7) k/uL Lymphocytes # (1.0-4.8) k/uL Monocytes # (0-1.0) k/uL Eosinophils # (0-0.7) k/uL Basophils # (0-0.2) k/uL Hypochromasia Sodium (137-145) mmol/L Potassium (3.5-5.1) mmol/L Chloride (98-107) mmol/L Carbon Dioxide (22-30) mmol/L Anion Gap mmol/L BUN (9-20) mg/dL Creatinine (0.66-1.25) mg/dL Est GFR (CKD-EPI)AfAm (>60 ml/min/1.73 sqM) Est GFR (CKD-EPI)NonAf (>60 ml/min/1.73 sqM) Glucose (74-99) mg/dL Plasma Lactic Acid Pietro 2.8 H* (0.7-2.0) mmol/L Calcium (8.4-10.2) mg/dL Total Bilirubin (0.2-1.3) mg/dL AST (17-59) U/L ALT (4-49) U/L Alkaline Phosphatase (38-126) U/L Total Protein (6.3-8.2) g/dL Albumin (3.5-5.0) g/dL Urine Color Light Yellow Urine Appearance Clear (Clear) Urine pH 6.5 (5.0-8.0) Ur Specific [place] 1.014 (1.001-1.035) Urine Protein 2+ H (Negative) Urine Glucose (UA) 4+ H (Negative) Urine Ketones Negative (Negative) Urine Blood Trace H (Negative) Urine Nitrite Negative (Negative) Urine Bilirubin Negative (Negative) Urine Urobilinogen <2.0 (<2.0) mg/dL Ur Leukocyte Esterase Negative (Negative) Urine RBC <1 (0-5) /hpf Urine WBC <1 (0-5) /hpf Coronavirus (PCR) (Not Detectd) Influenza Type A RNA Not Detected (Not Detectd) Influenza Type B (PCR) Not Detected (Not Detectd) 10/06/20 10/06/20 10/06/20 Range/Units 05:17 05:17 05:17 WBC 9.6 (3.8-10.6) k/uL RBC 4.08 L (4.30-5.90) m/uL Hgb 12.7 L (13.0-17.5) gm/dL Hct 39.9 (39.0-53.0) % MCV 97.9 (80.0-100.0) fL MCH 31.1 (25.0-35.0) pg MCHC 31.7 (31.0-37.0) g/dL RDW 15.1 (11.5-15.5) % Plt Count 168 (150-450) k/uL Neutrophils % 83 % Lymphocytes % 5 % Monocytes % 6 % Eosinophils % 3 % Basophils % 2 % Neutrophils # 8.0 H (1.3-7.7) k/uL Lymphocytes # 0.5 L (1.0-4.8) k/uL Monocytes # 0.6 (0-1.0) k/uL Eosinophils # 0.3 (0-0.7) k/uL Basophils # 0.2 (0-0.2) k/uL Hypochromasia Slight Sodium 133 L (137-145) mmol/L Potassium 5.3 H (3.5-5.1) mmol/L Chloride 96 L (98-107) mmol/L Carbon Dioxide 25 (22-30) mmol/L Anion Gap 12 mmol/L BUN 48 H (9-20) mg/dL Creatinine 4.88 H (0.66-1.25) mg/dL Est GFR (CKD-EPI)AfAm 12 (>60 ml/min/1.73 sqM) Est GFR (CKD-EPI)NonAf 11 (>60 ml/min/1.73 sqM) Glucose 475 H (74-99) mg/dL Plasma Lactic Acid Pietro (0.7-2.0) mmol/L Calcium 10.1 (8.4-10.2) mg/dL Total Bilirubin 0.5 (0.2-1.3) mg/dL AST 31 (17-59) U/L ALT 22 (4-49) U/L Alkaline Phosphatase 183 H (38-126) U/L Total Protein 7.2 (6.3-8.2) g/dL Albumin 4.3 (3.5-5.0) g/dL Urine Color Urine Appearance (Clear) Urine pH (5.0-8.0) Ur Specific [place] (1.001-1.035) Urine Protein (Negative) Urine Glucose (UA) (Negative) Urine Ketones (Negative) Urine Blood (Negative) Urine Nitrite (Negative) Urine Bilirubin (Negative) Urine Urobilinogen (<2.0) mg/dL Ur Leukocyte Esterase (Negative) Urine RBC (0-5) /hpf Urine WBC (0-5) /hpf Coronavirus (PCR) Detected A (Not Detectd) Influenza Type A RNA (Not Detectd) Influenza Type B (PCR) (Not Detectd) - EKG Data -: EKG Interpreted by Ma EKG shows normal: sinus rhythm, axis (normal), intervals (normal) Rate: tachycardia (rate 104 bpm) Interpretation: other (possible old septal infarct)
[2020-10-06 08:55] LABS: Glucose,Whole Blood 386 mg/dL (75-99)
[2020-10-06] MEDS: INSULIN ASPART (NovoLOG) 100 UNIT/ML VIAL SQ SCH ×4 (09:09→21:36)
[2020-10-06] MEDS ORDERED: amLODIPine 10 MG TAB PO STA (09:48)
[2020-10-06 12:44] LABS: Glucose,Whole Blood 264 mg/dL (75-99)
[2020-10-06] MEDS: LOSARTAN 25 MG TAB PO SCH (14:44)
--- NOTE | 2020-10-06 14:49 | P.HPIM ---
History of Present Illness Patient is a pleasant 79-year-old gentleman came in after a fall.this is mostly wheelchair bound with significant atrophy of both legs predominantly in the left leg. Patient was also complaining of pain in both knees as well as both hips.patient appears to have significant degenerative arthritis of all the joints.patient denied any fever chills at home but did have a low-grade fever here. Covid19 test was ordered which came back positive although patient doesn't have any symptoms consistent with that patient may have mild generalized body aches Maddie cough without sputum production.patient usually doesn't wear oxygen is according to response in here. Patient has history of end-stage disease as well as chronic diastolic dysfunction. Review of Systems REVIEW OF SYSTEMS: CONSTITUTIONAL: No fever, no malaise, no fatigue. HEENT: No recent visual problems or hearing problems. Denied any sore throat. CARDIOVASCULAR: No chest pain, orthopnea, PND, no palpitations, no syncope. PULMONARY: No shortness of breath, no cough, no hemoptysis. GASTROINTESTINAL: No diarrhea, no nausea, no vomiting, no abdominal pain. NEUROLOGICAL: No headaches, no weakness, no numbness. HEMATOLOGICAL: Denies any bleeding or petechiae. GENITOURINARY: Denies any burning micturition, frequency, or urgency. MUSCULOSKELETAL/RHEUMATOLOGICAL: Denies any joint pain, swelling, or any muscle pain. ENDOCRINE: Denies any polyuria or polydipsia. The rest of the 14-point review of systems is negative. Past Medical History Past Medical History: Asthma, Coronary Artery Disease (CAD), Cancer, Diabetes Mellitus, GERD/Reflux, Hyperlipidemia, Hypertension, Osteoarthritis (OA), Renal Disease, Thyroid Disorder Additional Past Medical History / Comment(s): kidney cancer (right Nephrectomy) History of Any Multi-Drug Resistant Organisms: None Reported Past Surgical History: Coronary Bypass/CABG, Heart Catheterization With Stent, Hernia Repair, Orthopedic Surgery Additional Past Surgical History / Comment(s): kidney removed from right side Past Anesthesia/Blood Transfusion Reactions: No Reported Reaction Date of Last Stent Placement:: 2011 Past Psychological History: No Psychological Hx Reported Smoking Status: Former smoker Past Alcohol Use History: Rare Past Drug Use History: None Reported - Past Family History Father Family Medical History: Unable to Obtain Mother Family Medical History: Asthma Medications and Allergies Home Medications Medication Instructions Recorded Confirmed Type Amitriptyline HCl [Elavil] 20 mg PO DAILY 08/14/16 10/06/20 History Aspirin EC [Ecotrin Low Dose] 81 mg PO DAILY 08/14/16 10/06/20 History Atorvastatin [Lipitor] 40 mg PO HS 08/14/16 10/06/20 History Calcium Carbonate [Calcium] 600 mg PO DAILY 08/14/16 10/06/20 History Insulin Aspart [NovoLOG Flexpen] 8 units SQ AC-BRKFST 08/14/16 10/06/20 History Insulin Detemir [Levemir Flextouch] 40 units SQ HS 08/14/16 10/06/20 History Omeprazole [PriLOSEC] 20 mg PO BID 08/14/16 10/06/20 History Primidone [Mysoline] 50 mg PO DAILY 08/14/16 10/06/20 History calcitrioL [Rocaltrol] 0.25 mcg PO DAILY 08/14/16 10/06/20 History Biotin 5 mg PO DAILY 08/17/19 10/06/20 History Clopidogrel [Plavix] 75 mg PO HS 08/17/19 10/06/20 History Donepezil HCl [Aricept] 5 mg PO HS 08/17/19 10/06/20 History Levothyroxine Sodium [Synthroid] 75 mcg PO DAILY 08/17/19 10/06/20 History amLODIPine [Norvasc] 5 mg PO BID 08/17/19 10/06/20 History Isosorbide Mononitrate ER [Imdur] 30 mg PO DAILY 30 Days #30 08/22/19 10/06/20 Rx tab.er.24h Magnesium Oxide [Mag-Ox] 400 mg PO DAILY 30 Days #30 tab 08/22/19 10/06/20 Rx Ascorbic Acid [Vitamin C] 1,000 mg PO DAILY 10/06/20 10/06/20 History Carvedilol [Coreg] 12.5 mg PO BID 10/06/20 10/06/20 History Cyanocobalamin (Vitamin B-12) 1,000 mcg PO DAILY 10/06/20 10/06/20 History [Vitamin B-12] Dialyvite 800mg 1 tab PO DAILY 10/06/20 10/06/20 History Furosemide [Lasix] 40 mg PO DAILY 10/06/20 10/06/20 History Losartan Potassium [Cozaar] 25 mg PO DAILY 10/06/20 10/06/20 History Mirtazapine [Remeron] 15 mg PO HS 10/06/20 10/06/20 History sitaGLIPtin PHOSPHATE [Januvia] 25 mg PO DAILY 10/06/20 10/06/20 History Allergies Allergy/AdvReac Type Severity Reaction Status Date / Time Penicillins Allergy Unknown Verified 10/06/20 08:41 Xavi Cheese AdvReac Nausea & Uncoded 10/06/20 08:57 Vomiting & Diarrhea Physical Exam Vitals: Vital Signs Temp Pulse Pulse Resp BP BP Pulse Ox 10/06/20 13:24 98.7 F 85 16 161/65 98 10/06/20 11:57 97.9 F 86 18 164/72 97 10/06/20 11:00 86 18 164/72 97 10/06/20 10:00 97.9 F 89 18 179/74 97 10/06/20 09:00 92 18 172/67 97 10/06/20 08:00 96 18 164/82 97 10/06/20 05:39 100 20 184/76 91 L 10/06/20 04:14 99.7 F H 105 H 18 182/70 92 L Intake and Output 10/05/20 10/06/20 10/06/20 22:59 06:59 14:59 Other: Weight 108.862 kg PHYSICAL EXAMINATION: GENERAL: The patient is alert and oriented x3, not in any acute distress. Well developed, well nourished. HEENT: Pupils are round and equally reacting to light. EOMI. No scleral icterus. No conjunctival pallor. Normocephalic, atraumatic. No pharyngeal erythema. No thyromegaly. CARDIOVASCULAR: S1 and S2 present. No murmurs, rubs, or gallops. PULMONARY: Chest is clear to auscultation, no wheezing or crackles. ABDOMEN: Soft, nontender, nondistended, normoactive bowel sounds. No palpable organomegaly. MUSCULOSKELETAL: No joint swelling or deformity. EXTREMITIES: No cyanosis, clubbing, or pedal edema. NEUROLOGICAL: patient has muscle atrophy in both legs does have chronic weakness. SKIN: No rashes. Results CBC & Chem 7: 10/06/20 05:17 10/06/20 05:17 Labs: Abnormal Lab Results - Last 24 Hours (Table) 10/06/20 10/06/20 10/06/20 Range/Units 05:17 05:17 05:17 RBC 4.08 L (4.30-5.90) m/uL Hgb 12.7 L (13.0-17.5) gm/dL Neutrophils # 8.0 H (1.3-7.7) k/uL Lymphocytes # 0.5 L (1.0-4.8) k/uL Sodium (137-145) mmol/L Potassium (3.5-5.1) mmol/L Chloride (98-107) mmol/L BUN (9-20) mg/dL Creatinine (0.66-1.25) mg/dL Glucose (74-99) mg/dL POC Glucose (mg/dL) (75-99) mg/dL Plasma Lactic Acid Pietro 2.8 H* (0.7-2.0) mmol/L Alkaline Phosphatase (38-126) U/L Urine Protein 2+ H (Negative) Urine Glucose (UA) 4+ H (Negative) Urine Blood Trace H (Negative) Coronavirus (PCR) (Not Detectd) 10/06/20 10/06/20 10/06/20 Range/Units 05:17 05:17 08:21 RBC (4.30-5.90) m/uL Hgb (13.0-17.5) gm/dL Neutrophils # (1.3-7.7) k/uL Lymphocytes # (1.0-4.8) k/uL Sodium 133 L (137-145) mmol/L Potassium 5.3 H (3.5-5.1) mmol/L Chloride 96 L (98-107) mmol/L BUN 48 H (9-20) mg/dL Creatinine 4.88 H (0.66-1.25) mg/dL Glucose 475 H (74-99) mg/dL POC Glucose (mg/dL) (75-99) mg/dL Plasma Lactic Acid Pietro 2.1 H* (0.7-2.0) mmol/L Alkaline Phosphatase 183 H (38-126) U/L Urine Protein (Negative) Urine Glucose (UA) (Negative) Urine Blood (Negative) Coronavirus (PCR) Detected A (Not Detectd) 10/06/20 10/06/20 Range/Units 08:53 12:29 RBC (4.30-5.90) m/uL Hgb (13.0-17.5) gm/dL Neutrophils # (1.3-7.7) k/uL Lymphocytes # (1.0-4.8) k/uL Sodium (137-145) mmol/L Potassium (3.5-5.1) mmol/L Chloride (98-107) mmol/L BUN (9-20) mg/dL Creatinine (0.66-1.25) mg/dL Glucose (74-99) mg/dL POC Glucose (mg/dL) 386 H 264 H (75-99) mg/dL Plasma Lactic Acid Pietro (0.7-2.0) mmol/L Alkaline Phosphatase (38-126) U/L Urine Protein (Negative) Urine Glucose (UA) (Negative) Urine Blood (Negative) Coronavirus (PCR) (Not Detectd) Assessment and Plan Plan: -fall: Secondary to chronic weakness with the severe osteoarthritis of both knees significant in the left knee. Diffuse body aches associated with the cold wind may have contributed to some of his weakness.physical therapy and occupational therapy evaluation -covid 19 infection: Patient has minimal hypoxia patient was started on Decadron, I'll consult infectious disease. -Type 2 diabetes mellitus patient blood sugars are expected to go up because of systemic steroids -end-stage renal renal disease hemodialysis dependent patient may have had a diabetic nephropathy.nephrology was consulted -Hyperlipidemia -Hypertension -Diabetic peripheral neuropathy -can you start failure chronic diastolic dysfunction without any acute exacerbation -Coronary artery disease -Gastroesophageal reflux disease -Hypertension -Hypothyroidism -Asthma without any acute exacerbation -DVT prophylaxis with heparin
--- NOTE | 2020-10-06 15:24 | XR ---
EXAMINATION TYPE: XR Hip Bilateral Complete DATE OF EXAM: 10/06/2020 COMPARISON: None HISTORY: Hip pain TECHNIQUE: 4 views FINDINGS: I see no fracture nor dislocation. There is left hip prosthesis in anatomic position. Right hip joint space is fairly normal. Sacroiliac joints are normal. IMPRESSION: Left hip prosthesis. No complicating process seen. No fracture.
--- NOTE | 2020-10-06 15:26 | XR ---
EXAMINATION TYPE: XR knee complete bilateral DATE OF EXAM: 10/06/2020 COMPARISON: NONE HISTORY: Knee pain TECHNIQUE: 6 views FINDINGS: There is a mild right knee joint effusion. There is vascular calcification. There is small left knee joint effusion. There is no evidence of a fracture. IMPRESSION: Bilateral mild knee joint effusions. No fracture seen. Atherosclerotic vascular disease.
--- NOTE | 2020-10-06 15:52 | CONS ---
CONSULTATION REASON FOR CONSULT: End-stage renal disease. HISTORY OF PRESENT ILLNESS: Patient is a 79-year-old male who was admitted to the hospital with the complaints of fever, not feeling well. He tested positive for COVID-19. He is has history of end- stage renal disease and maintained on dialysis on a Wednesday, Wednesday, Wednesday schedule. Patient had also sustained a fall prior to admission. He normally goes to dialysis on [place] [address] at the [facility]. No history of diarrhea, nausea or vomiting currently. PAST MEDICAL HISTORY: End-stage renal disease on hemodialysis, hypertension, hypothyroidism, type 2 diabetes, dyslipidemia, coronary artery disease, history of kidney cancer and right nephrectomy, gastroesophageal reflux disease. PAST SURGICAL HISTORY: Coronary artery bypass surgery, coronary stent placement, hernia repair, right nephrectomy. SOCIAL HISTORY: Patient is a former smoker. No history of drug abuse or alcohol abuse. MEDICATIONS: Medications prior to admission included aspirin, Lipitor, Tums, Prilosec, Rocaltrol, Plavix, Aricept, Synthroid, Benefiber, Norvasc, Januvia, Imdur and magnesium. ALLERGIES: ALLERGIES include PENICILLIN and BLUE CHEESE. REVIEW OF SYSTEMS: As per HPI. PHYSICAL EXAMINATION: Patient is comfortable, awake, he is not in any acute distress. He is lying in bed comfortably. Blood pressure was 179/74, heart rate 89 per minute, he is afebrile. Examination shows trace edema bilaterally. Abdomen is soft, obese, nontender. Patient has an AV fistula in his left upper arm. DIRECTOR PRISON exam is grossly intact. No focal deficits noted. LAB: Show sodium 133, potassium 5.3, BUN 48, creatinine 4.8, hemoglobin 12.7. Lactic acid was 2.8. ASSESSMENT: 1. End-stage renal disease on hemodialysis on a Wednesday, Wednesday, Wednesday schedule. I will arrange for hemodialysis tomorrow. The patient is normally dialyzed at the clinic out of town, at the [facility] on [address] 2. COVID-19 infection with positive PCR. 3. Currently fairly comfortable from respiratory standpoint. 4. Lactic acidosis. Lactic acid is currently decreased. 5. Chronic kidney disease mineral bone disorder. 6. Hypertension. 7. Coronary artery disease. 8. Type 2 diabetes. PLAN: Hemodialysis in a.m. and resume antihypertensive medications as blood pressure is elevated. Thank you for this consultation. Will continue to follow the patient with you during his hospitalization. MMODL / IJN: [id number] /
[2020-10-06] MEDS ORDERED: HEPARIN SODIUM,PORCINE 5,000 UNIT/ML 1 ML VIAL SQ SCH (16:00)
[2020-10-06 16:22] LABS: Glucose,Whole Blood 384 mg/dL (75-99)
[2020-10-06] MEDS: carvediloL 12.5 MG TAB PO SCH (17:03)
[2020-10-06 21:00] LABS: Glucose,Whole Blood 400 mg/dL (75-99)
[2020-10-06] MEDS ORDERED: CLOPIDOGREL 75 MG TAB PO SCH (21:00)
[2020-10-06] MEDS ORDERED: MIRTAZAPINE 15 MG TAB PO SCH (21:00)
[2020-10-06] MEDS ORDERED: DONEPEZIL 5 MG TAB PO SCH (21:00)
[2020-10-06] MEDS ORDERED: PANTOPRAZOLE 40 MG TABLET PO SCH (21:00)
[2020-10-06] MEDS ORDERED: ATORVASTATIN 40 MG TAB PO SCH (21:00)
[2020-10-06] MEDS ORDERED: INSULIN DETEMIR (LEVEMIR) 100 UNIT/ML SYR SQ SCH (21:00)
[2020-10-06] MEDS ORDERED: AZITHROMYCIN 500 MG in SODIUM CHLORIDE 0.9% 250 ML IVPB STA (21:51)
--- NOTE | 2020-10-06 22:01 | P.CONS ---
History of Present Illness - Reason for Consult Consult date: 10/06/20 Covid 19 Requesting physician: Jake Orosco - Chief Complaint Fall x one day - History of Present Illness Patient is a 79 year old male with a past medical history significant for bilateral lower extremity atrophy and the patient is wheelchair-bound patient apparently did have a follow-up for the patient has been brought into the ER, the patient denies specifically any symptoms he denies any headaches no chest pain or shortness breath minimal cough no nausea no vomiting no abdominal pain or any diarrhea patient on arrival to the ER did have a low-grade fever of 99.7 patient did have O2 sats of 92% on room air patient did have a normal white count with lymphopenia elevated d-dimer, patient did have creatinine of 4.88 and platelets elevated lactic acid liver enzymes normal, urine was negative influenza PCR was negative, PCR came back positive chest x-ray was negative for any acute infiltrate patient has been admitted to the hospital infectious [facility] [place] was consulted for further management, patient overall not a good historian so most information has been extracted from the chart Review of Systems Positive point has been mentioned in the HPI rest of the systems are negative Past Medical History Past Medical History: Asthma, Coronary Artery Disease (CAD), Cancer, Diabetes Mellitus, GERD/Reflux, Hyperlipidemia, Hypertension, Osteoarthritis (OA), Renal Disease, Thyroid Disorder Additional Past Medical History / Comment(s): kidney cancer (right Nephrectomy) History of Any Multi-Drug Resistant Organisms: None Reported Past Surgical History: Coronary Bypass/CABG, Heart Catheterization With Stent, Hernia Repair, Orthopedic Surgery Additional Past Surgical History / Comment(s): kidney removed from right side Past Anesthesia/Blood Transfusion Reactions: No Reported Reaction Date of Last Stent Placement:: 2011 Past Psychological History: No Psychological Hx Reported Smoking Status: Former smoker Past Alcohol Use History: Rare Past Drug Use History: None Reported - Past Family History Father Family Medical History: Unable to Obtain Mother Family Medical History: Asthma Medications and Allergies Home Medications Medication Instructions Recorded Confirmed Type Amitriptyline HCl [Elavil] 20 mg PO DAILY 08/14/16 10/06/20 History Aspirin EC [Ecotrin Low Dose] 81 mg PO DAILY 08/14/16 10/06/20 History Atorvastatin [Lipitor] 40 mg PO HS 08/14/16 10/06/20 History Calcium Carbonate [Calcium] 600 mg PO DAILY 08/14/16 10/06/20 History Insulin Aspart [NovoLOG Flexpen] 8 units SQ AC-BRKFST 08/14/16 10/06/20 History Insulin Detemir [Levemir Flextouch] 40 units SQ HS 08/14/16 10/06/20 History Omeprazole [PriLOSEC] 20 mg PO BID 08/14/16 10/06/20 History Primidone [Mysoline] 50 mg PO DAILY 08/14/16 10/06/20 History calcitrioL [Rocaltrol] 0.25 mcg PO DAILY 08/14/16 10/06/20 History Biotin 5 mg PO DAILY 08/17/19 10/06/20 History Clopidogrel [Plavix] 75 mg PO HS 08/17/19 10/06/20 History Donepezil HCl [Aricept] 5 mg PO HS 08/17/19 10/06/20 History Levothyroxine Sodium [Synthroid] 75 mcg PO DAILY 08/17/19 10/06/20 History amLODIPine [Norvasc] 5 mg PO BID 08/17/19 10/06/20 History Isosorbide Mononitrate ER [Imdur] 30 mg PO DAILY 30 Days #30 08/22/19 10/06/20 Rx tab.er.24h Magnesium Oxide [Mag-Ox] 400 mg PO DAILY 30 Days #30 tab 08/22/19 10/06/20 Rx Ascorbic Acid [Vitamin C] 1,000 mg PO DAILY 10/06/20 10/06/20 History Carvedilol [Coreg] 12.5 mg PO BID 10/06/20 10/06/20 History Cyanocobalamin (Vitamin B-12) 1,000 mcg PO DAILY 10/06/20 10/06/20 History [Vitamin B-12] Dialyvite 800mg 1 tab PO DAILY 10/06/20 10/06/20 History Furosemide [Lasix] 40 mg PO DAILY 10/06/20 10/06/20 History Losartan Potassium [Cozaar] 25 mg PO DAILY 10/06/20 10/06/20 History Mirtazapine [Remeron] 15 mg PO HS 10/06/20 10/06/20 History sitaGLIPtin PHOSPHATE [Januvia] 25 mg PO DAILY 10/06/20 10/06/20 History Allergies Allergy/AdvReac Type Severity Reaction Status Date / Time Penicillins Allergy Unknown Verified 10/06/20 08:41 Xavi Cheese AdvReac Nausea & Uncoded 10/06/20 08:57 Vomiting & Diarrhea Physical Exam Vitals: Vital Signs Temp Pulse Pulse Resp BP BP Pulse Ox 10/06/20 15:00 98.7 F 91 16 160/62 98 10/06/20 13:24 98.7 F 85 16 161/65 98 10/06/20 11:57 97.9 F 86 18 164/72 97 10/06/20 11:00 86 18 164/72 97 10/06/20 10:00 97.9 F 89 18 179/74 97 10/06/20 09:00 92 18 172/67 97 10/06/20 08:00 96 18 164/82 97 10/06/20 05:39 100 20 184/76 91 L 10/06/20 04:14 99.7 F H 105 H 18 182/70 92 L Intake and Output 10/06/20 10/06/20 10/06/20 06:59 14:59 22:59 Other: # Voids 1 Weight 108.862 kg 108.862 kg GENERAL DESCRIPTION: Elderly male lying in bed, no distress. No tachypnea or accessory muscle of respiration use. HEENT: Shows Pallor , no scleral icterus. Oral mucous membrane is dry. No pharyngeal erythema or thrush NECK: Trachea central, no thyromegaly. LUNGS: Unlabored breathing. Decreased breath sounds at [employer] [place]. No wheeze or crackle. HEART: S1, S2, regular rate and rhythm. No loud murmur ABDOMEN: Soft, no tenderness , guarding or rigidity, no organomegaly EXTREMITIES: No edema of feet. SKIN: No rash, no masses palpable. NEUROLOGICAL: The patient is awake, alert, oriented x2, mood and affect normal. Results CBC & Chem 7: 10/06/20 05:17 10/06/20 05:17 Labs: Abnormal Lab Results - Last 24 Hours (Table) 10/06/20 10/06/20 10/06/20 Range/Units 05:17 05:17 05:17 RBC 4.08 L (4.30-5.90) m/uL Hgb 12.7 L (13.0-17.5) gm/dL Neutrophils # 8.0 H (1.3-7.7) k/uL Lymphocytes # 0.5 L (1.0-4.8) k/uL D-Dimer (<0.60) mg/L FEU Sodium (137-145) mmol/L Potassium (3.5-5.1) mmol/L Chloride (98-107) mmol/L BUN (9-20) mg/dL Creatinine (0.66-1.25) mg/dL Glucose (74-99) mg/dL POC Glucose (mg/dL) (75-99) mg/dL Plasma Lactic Acid Pietro 2.8 H* (0.7-2.0) mmol/L Alkaline Phosphatase (38-126) U/L Urine Protein 2+ H (Negative) Urine Glucose (UA) 4+ H (Negative) Urine Blood Trace H (Negative) Coronavirus (PCR) (Not Detectd) 10/06/20 10/06/20 10/06/20 Range/Units 05:17 05:17 08:21 RBC (4.30-5.90) m/uL Hgb (13.0-17.5) gm/dL Neutrophils # (1.3-7.7) k/uL Lymphocytes # (1.0-4.8) k/uL D-Dimer (<0.60) mg/L FEU Sodium 133 L (137-145) mmol/L Potassium 5.3 H (3.5-5.1) mmol/L Chloride 96 L (98-107) mmol/L BUN 48 H (9-20) mg/dL Creatinine 4.88 H (0.66-1.25) mg/dL Glucose 475 H (74-99) mg/dL POC Glucose (mg/dL) (75-99) mg/dL Plasma Lactic Acid Pietro 2.1 H* (0.7-2.0) mmol/L Alkaline Phosphatase 183 H (38-126) U/L Urine Protein (Negative) Urine Glucose (UA) (Negative) Urine Blood (Negative) Coronavirus (PCR) Detected A (Not Detectd) 10/06/20 10/06/20 10/06/20 Range/Units 08:53 12:29 14:19 RBC (4.30-5.90) m/uL Hgb (13.0-17.5) gm/dL Neutrophils # (1.3-7.7) k/uL Lymphocytes # (1.0-4.8) k/uL D-Dimer 2.78 H (<0.60) mg/L FEU Sodium (137-145) mmol/L Potassium (3.5-5.1) mmol/L Chloride (98-107) mmol/L BUN (9-20) mg/dL Creatinine (0.66-1.25) mg/dL Glucose (74-99) mg/dL POC Glucose (mg/dL) 386 H 264 H (75-99) mg/dL Plasma Lactic Acid Pietro (0.7-2.0) mmol/L Alkaline Phosphatase (38-126) U/L Urine Protein (Negative) Urine Glucose (UA) (Negative) Urine Blood (Negative) Coronavirus (PCR) (Not Detectd) Assessment and Plan Assessment: 1- patient presented to the hospital after apparently the patient did have a follow-up, patient did have low-grade fever of 99.7 did have a normal white count however did have evidence of lymphopenia elevated d-dimer the liver enzymes are normal and no CRP was done chest x-ray did not show any active infiltrate and [place] PCR is positive (1) Lab test positive for detection of COVID-19 virus Current Visit: Yes Status: Acute Code(s): U07.1 - COVID-19 SNOMED Code(s): 5176925090922987 Plan: 1- we will check CRP pro calcitonin and LDH 2- repeat chest x-ray tomorrow 3- patient started on Decadron and Lovenox and a dose of Zithromax and zinc sulfate We will follow on clinical condition and cultures to further adjust medication if needed Thank you for this consultation will follow this patient with you Time with Patient: Greater than 30
[2020-10-06 22:33] LABS: Phosphorus 3.5 mg/dL (2.4-5.1)
[2020-10-07] MEDS: ENOXAPARIN 40 MG/0.4 ML SYRINGE SQ SCH ×2 (00:42→08:31)
[2020-10-07] MEDS ORDERED: LEVOTHYROXINE 75 MCG TAB PO SCH (06:30)
[2020-10-07 06:36] LABS: Basophils % (A) 0 %; Eosinophils % (A) 0 %; HCT 37.3 % (39.0-53.0); HGB 11.5 gm/dL (13.0-17.5); Hypochromasia Slight; Lymphocytes # (A) 0.8 k/uL (1.0-4.8); Lymphocytes % (A) 13 %; MCH 30.3 pg (25.0-35.0); MCV 97.8 fL (80.0-100.0); Mean Platelet Volume 8.7; Monocytes # (A) 0.5 k/uL (0-1.0); Monocytes % (A) 8 %; Neutrophils # (A) 4.7 k/uL (1.3-7.7); Neutrophils % (A) 78 %; Platelet Count 157 k/uL (150-450); RBC 3.81 m/uL (4.30-5.90); RDW 15.2 % (11.5-15.5); WBC 6.1 k/uL (3.8-10.6)
[2020-10-07 07:01] LABS: Glucose,Whole Blood 219 mg/dL (75-99)
[2020-10-07] MEDS ORDERED: PANTOPRAZOLE 40 MG TABLET PO SCH (07:30)
[2020-10-07] MEDS: INSULIN ASPART (NovoLOG) 100 UNIT/ML VIAL SQ SCH ×2 (07:39→12:28)
[2020-10-07] MEDS: carvediloL 12.5 MG TAB PO SCH (08:30)
[2020-10-07] MEDS: LOSARTAN 25 MG TAB PO SCH (08:30)
[2020-10-07] MEDS ORDERED: LINAGLIPTIN 5 MG TABLET PO SCH (09:00)
[2020-10-07] MEDS ORDERED: CALCIUM CARBONATE 500 MG CHEWABLE PO SCH (09:00)
[2020-10-07] MEDS ORDERED: amLODIPine 5 MG TAB PO SCH (09:00)
[2020-10-07] MEDS ORDERED: dexAMETHasone 2 MG TAB PO SCH (09:00)
[2020-10-07] MEDS ORDERED: ISOSORBIDE MONONITRATE ER 30 MG TAB.ER.24H PO SCH (09:00)
[2020-10-07] MEDS ORDERED: AMITRIPTYLINE HCL 10 MG TAB PO SCH (09:00)
[2020-10-07] MEDS ORDERED: MAGNESIUM OXIDE 400 MG TAB PO SCH (09:00)
[2020-10-07] MEDS ORDERED: ASPIRIN 81 MG PO SCH (09:00)
[2020-10-07] MEDS ORDERED: ASCORBIC ACID 500 MG TAB PO SCH (09:00)
[2020-10-07] MEDS ORDERED: ZINC SULFATE 220 MG CAP PO SCH (09:00)
[2020-10-07] MEDS ORDERED: PRIMIDONE 50 MG TAB PO SCH (09:00)
[2020-10-07] MEDS ORDERED: FUROSEMIDE 40 MG TAB PO SCH (09:00)
[2020-10-07] MEDS ORDERED: NON FORMULARY DRUG (Biotin [Biotin] 5 MG Capsule) PO SCH (09:00)
[2020-10-07 10:20] LABS: African American GFR (CKD) 11.4 (60.0-200.0); Albumin/Globulin Ratio 1.82 (1.60-3.17); Anion Gap 14.4 mmol/L (4.00-12.00); BUN/Creat Ratio 10.38 Ratio (12.00-20.00); C Reactive Protein 4.6 mg/dL (0.0-0.8); Calcium 9.7 mg/dL (8.7-10.3); Carbon Dioxide 22.6 mmol/L (21.6-31.8); Globulin 2.2 g/dL (1.6-3.3); Non-African American GFR(CKD) 9.8 (60.0-200.0); Potassium 5.2 mmol/L (3.5-5.5); Total Bilirubin 0.2 mg/dL (0.3-1.2); Total Protein 6.2 g/dL (6.2-8.2)
[2020-10-07 11:26] LABS: Glucose,Whole Blood 357 mg/dL (75-99)
--- NOTE | 2020-10-07 15:25 | PN ---
PROGRESS NOTE Patient is seen for followup for end-stage renal disease. He tested positive for COVID- 19 and patient is currently status post steroids. He is currently maintained on zinc. He did get a dose of Z-Micah. No significant respiratory distress. Currently, the patient is scheduled for hemodialysis today. PHYSICAL EXAMINATION: On examination, blood pressure is 155/65, heart rate 76per minute, patient is afebrile. Examination shows trace edema bilateral lower extremities. Abdomen is soft, nontender. The patient has a Sultana catheter which was placed as he had an accident with the urine output. BANK NOTE DESIGNER exam grossly intact. LABS: Show sodium 138, potassium 5.2 BUN of 54 hemoglobin 11.5 g/dL. ASSESSMENT: 1. End-stage renal disease, on hemodialysis on a Wednesday, Wednesday, Wednesday schedule. Patient dialyzes at a facility out of town. 2. COVID-19 infection, status post steroids and a Z-Micah maintained on zinc. 3. No respiratory distress noted. Chest x-ray on admission showed no acute findings. 4. CKD mineral bone disorder, maintained on Rocaltrol. 5. Hypertension, currently controlled. PLAN: Hemodialysis today. We will need to have discussion with his outpatient facility regarding the patient's COVID-19 infection and their protocol for dialysis patients. MMODL / IJN: [id number] /
--- NOTE | 2020-10-07 16:33 | P.DS ---
Providers Date of admission: 10/06/20 06:28 Attending physician: Lia Sanchez Consults: 10/06/20 06:27 Consult Physician Routine Consulting Provider: Glendy Mondragon Consult Reason/Comments: dialysis patient Do you want consulting provider notified?: Yes 10/06/20 13:25 Consult Physician Routine Consulting Provider: Hafsa Jaramillo Consult Reason/Comments: COVID Do you want consulting provider notified?: Yes Primary care physician: Stated None Hospital Course: 79-year-old gentleman came in after a fall.this is mostly wheelchair bound with significant atrophy of both legs predominantly in the left leg. Patient was also complaining of pain in both knees as well as both hips.patient appears to have significant degenerative arthritis of all the joints.patient denied any fever chills at home but did have a low-grade fever here. Covid19 test was ordered which came back positive although patient doesn't have any symptoms consistent with that patient may have mild generalized body aches Maddie cough w ithout sputum production.patient usually doesn't wear oxygen is according to response in here. Patient has history of end-stage disease as well as chronic diastolic dysfunction. 10/07/2020 Patient is clinically doing well is not requiring oxygen at this time patient will be discharged on Decadron for 6 more days and the his long-acting insulin dose will be increased by 20 units until he is done with the Decadron. Patient was a valid by physical therapy and occupational therapy the not recommending any placement in subacute rehabilitation patient will be discharged home today patient will continue with his hemodialysis as scheduled. Patient is on a very low-dose of losartan and does have a very minimally elevated potassium low potassium diet will be advised and patient will follow with nephrology and hemodialysis. PHYSICAL EXAMINATION: GENERAL: The patient is alert and oriented x3, not in any acute distress. Well developed, well nourished. HEENT: Pupils are round and equally reacting to light. EOMI. No scleral icterus. No conjunctival pallor. Normocephalic, atraumatic. No pharyngeal erythema. No thyromegaly. CARDIOVASCULAR: S1 and S2 present. No murmurs, rubs, or gallops. PULMONARY: Chest is clear to auscultation, no wheezing or crackles. ABDOMEN: Soft, nontender, nondistended, normoactive bowel sounds. No palpable organomegaly. MUSCULOSKELETAL: No joint swelling or deformity. EXTREMITIES: No cyanosis, clubbing, or pedal edema. NEUROLOGICAL: Gross neurological examination did not reveal any focal deficits. SKIN: No rashes. Note: Because of COVID 19 isolation, some of the history and physical exam findings are indirect and obtained from nursing staff, and other physician examinations to avoid unnecessary contact with the patient. Assessment and Plan Plan: -fall: Secondary to chronic weakness and chronic osteoarthritis along with possible generalized weakness from Covid -covid 19 infection: Patient will be discharged on Decadron -Type 2 diabetes mellitus patient blood sugars are high because of systemic steroids -end-stage renal renal disease hemodialysis dependent patient may have had a diabetic nephropathy. -Hyperlipidemia -Hypertension -Diabetic peripheral neuropathy -can you start failure chronic diastolic dysfunction without any acute exacerbation -Coronary artery disease -Gastroesophageal reflux disease -Hypertension -Hypothyroidism -Asthma without any acute exacerbation Plan - Discharge Summary New Discharge Prescriptions: New dexAMETHasone [Hexadrol] 6 mg PO DAILY #6 tab Continue Primidone [Mysoline] 50 mg PO DAILY Atorvastatin [Lipitor] 40 mg PO HS Amitriptyline HCl [Elavil] 20 mg PO DAILY Omeprazole [PriLOSEC] 20 mg PO BID Insulin Aspart [NovoLOG Flexpen] 8 units SQ AC-BRKFST calcitrioL [Rocaltrol] 0.25 mcg PO DAILY Aspirin EC [Ecotrin Low Dose] 81 mg PO DAILY Calcium Carbonate [Calcium] 600 mg PO DAILY Biotin 5 mg PO DAILY Levothyroxine Sodium [Synthroid] 75 mcg PO DAILY Donepezil HCl [Aricept] 5 mg PO HS Clopidogrel [Plavix] 75 mg PO HS amLODIPine [Norvasc] 5 mg PO BID Isosorbide Mononitrate ER [Imdur] 30 mg PO DAILY 30 Days #30 tab.er.24h Magnesium Oxide [Mag-Ox] 400 mg PO DAILY 30 Days #30 tab Cyanocobalamin (Vitamin B-12) [Vitamin B-12] 1,000 mcg PO DAILY Ascorbic Acid [Vitamin C] 1,000 mg PO DAILY Mirtazapine [Remeron] 15 mg PO HS Losartan Potassium [Cozaar] 25 mg PO DAILY sitaGLIPtin PHOSPHATE [Januvia] 25 mg PO DAILY Furosemide [Lasix] 40 mg PO DAILY Dialyvite 800mg 1 tab PO DAILY Carvedilol [Coreg] 12.5 mg PO BID Insulin Detemir [Levemir Flextouch] 40 units SQ HS #0 Discharge Medication List Amitriptyline HCl [Elavil] 20 mg PO DAILY 08/14/16 [History] Aspirin EC [Ecotrin Low Dose] 81 mg PO DAILY 08/14/16 [History] Atorvastatin [Lipitor] 40 mg PO HS 08/14/16 [History] Calcium Carbonate [Calcium] 600 mg PO DAILY 08/14/16 [History] Insulin Aspart [NovoLOG Flexpen] 8 units SQ AC-BRKFST 08/14/16 [History] Omeprazole [PriLOSEC] 20 mg PO BID 08/14/16 [History] Primidone [Mysoline] 50 mg PO DAILY 08/14/16 [History] calcitrioL [Rocaltrol] 0.25 mcg PO DAILY 08/14/16 [History] Biotin 5 mg PO DAILY 08/17/19 [History] Clopidogrel [Plavix] 75 mg PO HS 08/17/19 [History] Donepezil HCl [Aricept] 5 mg PO HS 08/17/19 [History] Levothyroxine Sodium [Synthroid] 75 mcg PO DAILY 08/17/19 [History] amLODIPine [Norvasc] 5 mg PO BID 08/17/19 [History] Isosorbide Mononitrate ER [Imdur] 30 mg PO DAILY 30 Days #30 tab.er.24h 08/22/19 [Rx] Magnesium Oxide [Mag-Ox] 400 mg PO DAILY 30 Days #30 tab 08/22/19 [Rx] Ascorbic Acid [Vitamin C] 1,000 mg PO DAILY 10/06/20 [History] Carvedilol [Coreg] 12.5 mg PO BID 10/06/20 [History] Cyanocobalamin (Vitamin B-12) [Vitamin B-12] 1,000 mcg PO DAILY 10/06/20 [History] Dialyvite 800mg 1 tab PO DAILY 10/06/20 [History] Furosemide [Lasix] 40 mg PO DAILY 10/06/20 [History] Losartan Potassium [Cozaar] 25 mg PO DAILY 10/06/20 [History] Mirtazapine [Remeron] 15 mg PO HS 10/06/20 [History] sitaGLIPtin PHOSPHATE [Januvia] 25 mg PO DAILY 10/06/20 [History] Insulin Detemir [Levemir Flextouch] 40 units SQ HS #0 10/07/20 [Rx] dexAMETHasone [Hexadrol] 6 mg PO DAILY #6 tab 10/07/20 [Rx] Patient Instructions/Handouts: Community Acquired Pneumonia (DC) Activity/Diet/Wound Care/Special Instructions: Follow up with primary care physician in 3 - 7 days Discharge Disposition: HOME SELF-CARE
[2020-10-07 16:38] VITALS: BP 157/66; PULSE 66; RESP 18; TEMP 98
== END 2020-10-07 17:09 | disposition home or self-care (01) | DRG 177 ==
LOC: EC 04:06 → 6NMEDSUR 06:28 → 4SSUR 11:24
PROVIDERS: ADMIT Hospitalist; ATTEND Hospitalist
PROC: 5A1D70Z Performance of Urinary Filtration, Intermittent, Less than 6 Hours Per Day (ICD-10-PCS; principal; 2020-10-07)
DX: U07.1 COVID-19 (principal); N18.6 End stage renal disease; E87.2 Acidosis; I13.2 Hypertensive heart and chronic kidney disease with heart failure and with stage 5 chronic kidney disease, or end stage renal disease; I50.32 Chronic diastolic (congestive) heart failure; E03.9 Hypothyroidism, unspecified; E11.22 Type 2 diabetes mellitus with diabetic chronic kidney disease; E11.42 Type 2 diabetes mellitus with diabetic polyneuropathy; E78.5 Hyperlipidemia, unspecified; E11.65 Type 2 diabetes mellitus with hyperglycemia; Z99.2 Dependence on renal dialysis; Z79.4 Long term (current) use of insulin; I25.10 Atherosclerotic heart disease of native coronary artery without angina pectoris; J45.909 Unspecified asthma, uncomplicated; K21.9 Gastro-esophageal reflux disease without esophagitis; M17.0 Bilateral primary osteoarthritis of knee; M16.0 Bilateral primary osteoarthritis of hip; Z91.81 History of falling; E83.9 Disorder of mineral metabolism, unspecified; Z79.82 Long term (current) use of aspirin; Z79.890 Hormone replacement therapy; Z79.899 Other long term (current) drug therapy; Z82.5 Family history of asthma and other chronic lower respiratory diseases; Z85.528 Personal history of other malignant neoplasm of kidney; Z87.891 Personal history of nicotine dependence; Z90.5 Acquired absence of kidney; Z95.1 Presence of aortocoronary bypass graft; Z95.5 Presence of coronary angioplasty implant and graft; Z99.3 Dependence on wheelchair; Z79.02 Long term (current) use of antithrombotics/antiplatelets; Z88.0 Allergy status to penicillin; T38.0X5A Adverse effect of glucocorticoids and synthetic analogues, initial encounter
CPT/HCPCS: 36415; 71045; 73521; 80053; 81001; 83605; 83615; 84100; 84145; 85025; 85379; 86140; 87040; 87502; 87635; 90935; 93005